=== PATIENT | female | born 1965 | race Caucasian/White ===

== ENCOUNTER 2024-12-21 15:53 | Emergency (ER) | payer BC, SELFPAY ==
--- NOTE | ~2024-12-21 | CT_ITS ---
CTA brain carotid Ordering provider: Danii Lucero MD History: . headache sev days - new onset dizziness tinnitus . Comparison: None. Technique: CT angiogram head and neck was performed following timed intravenous injection of contrast . Thin slice axial images and reformatted coronal images were obtained. Three dimensional reformatted images of the brain were also obtained using a [employer] workstation. Radiation reduction technique ut ilized.The dose-length product was 1743.66 mGy-cm. 100 mL Omnipaque 350 was given IV. FINDINGS: HEAD: --ANTERIOR AND MIDDLE CEREBRAL ARTERIES AND BRANCHES: Normal caliber and contour. --INTERNAL CAROTID ARTERIES: Mild atheromatous disease but no significant stenosis. No occlusion. --BASILAR ARTERY AND BRANCHES: Normal caliber and contour. No atheromatous disease. --POSTERIOR CEREBRAL ARTERIES: Normal caliber and contour --POSTERIOR COMMUNICATING ARTERIES: Not visualized which is probably related to congenital absence or small size. --ANEURYSM: None visualized. --BRAIN: Normal for patient's age. --BONES AND SUPERFICIAL SOFT TISSUES: Normal. --PARANASAL SINUSES AND MASTOIDS: Well especially Left nasal septal deviation. Bilateral mastoid air cells effusion. Right maxillary sinus disease.. NECK: --RIGHT CERVICAL CAROTID SYSTEM: Normal caliber and contour. Percent stenosis per NASCET criteria is 0%. No carotid dissection. Otherwise, no significant atheromatous disease or stenosis of the cervica l carotid system. --LEFT CERVICAL CAROTID SYSTEM: Normal caliber and contour. Percent stenosis per NASCET criteria is 0%. No carotid dissection. Otherwise, no significant atheromatous disease or stenosis of the cervical carotid system. --VERTEBRAL ARTERIES: Dominant left vertebral artery. Otherwise, Normal caliber and contour. --VISUALIZED AORTIC ARCH AND BRANCHING VESSELS: Mild atheromatous disease but no significant stenosis . --SOFT TISSUES: Normal. --CERVICAL SPINE: Age appropriate degenerative changes. IMPRESSION: 1. Normal CTA head and neck. Percent stenosis per NASCET criteria is 0%. Reviewed, dictated and finalized at location A.
--- OUTSIDE RECORDS SUMMARY | 2024-12-21 15:55 | XMS_ITS | Clinical Summary ---
Author Organization [facility] Address [address] [place] [address] Care Team Providers Care Mechanical Engineering Technologist Name Role Phone Dorothy Shieldslindy Ulloa [facility] Primary Care Provider + Allergies No known active allergies Medications No known medications Active Problems No known active problems Family History Medical History Relation Comments Breast Cancer Neg Hx Social History Tobacco Use Types Packs/Day Years Used Date Smoking Tobacco: Never Smokeless Tobacco: Never Alcohol Use Standard Drinks/Week Comments Yes 13.3 (1 standard drink = 0.6 oz pure alcohol) wine with dinners PHQ-2 Answer Date Recorded PHQ-2 Score - If the patient scores above 3, please move on to questions 3-9 0 10/20/2021 Comments No Sex and Gender Information Value Date Recorded Sex Assigned at Not on file Legal Sex Female 6:39 PM CDT Gender Identity Not on file Sexual Orientation Not on file Last Filed Vital Signs Vital Sign Reading Time Taken Comments Blood Pressure 132/76 10/20/2021 1:46 PM CANCER PROGRAM DIRECTOR Pulse 75 10/20/2021 1:46 PM CANCER PROGRAM DIRECTOR Temperature 36.6 C (97.9 F) 10/20/2021 1:46 PM CANCER PROGRAM DIRECTOR Respiratory Rate 20 10/20/2021 1:46 PM CANCER PROGRAM DIRECTOR Oxygen Saturation 98% 10/20/2021 1:46 PM CANCER PROGRAM DIRECTOR Inhaled Oxygen Concentration - - Weight 89.9 kg (198 lb 3.2 oz) 10/20/2021 1:46 P M CANCER PROGRAM DIRECTOR Height 175.3 cm (5' 9 ) 10/20/2021 1:46 PM CANCER PROGRAM DIRECTOR Body Mass Index 29.27 10/20/2021 1:46 PM CANCER PROGRAM DIRECTOR Plan of Treatment Health Maintenance Due Date Last Done Comments Colorectal Cancer Screening Colonoscopy (10 Years) 1963 Hepatitis C 1981 DTaP, Tdap and Td Vaccines ( 1 - Tdap) 1982 Zoster Vaccines (1 of 2) 2013 COVID-19 Vaccine (3 - Pfizer risk series) 01/23/2021 12/26/2020, 11/28/2020 Annual Physical 10/20/2022 10/20/2021 Mammogram Screening 01/28/2025 01/28/2023, 01/06/2023, 12/29/2021 RSV Immunization or 60+ Years (1 - 1-dose 75+ series) 2038 Meningococcal B Vaccine Aged Out No l onger eligible based on patient's age to complete this topic Meningococcal Vaccine Aged Out No thiago valencia eligible based on patient's age to complete this topic Pneumococcal Vaccine: Pediatrics (0 to 5 Years) and At-Risk Patients (6 to 64 Years) Aged Out No longer eligible b ased on patient's age to complete this topic RSV Immunizations Under 20 Months Aged Out No longer eligible b ased on patient's age to complete this topic Procedures Procedure Name Priority Date/Time Associated Diagnosis Comments MG HAOG W MICHAEL LT DIGI Routine 01/28/2023 1:28 PM CDT Abnormal mammogram of left breast from Last 3 Months or Most Recently Relevant to Health Maintenance Results * MG DIAG W MICHAEL LT DIGI (01/28/2023 1:28 PM CDT) Anatomical Region Laterality Modality Breast Left Computed Tomogra phy, Other, Computed Tomography 01/28/2023 4:07 PM CDT Narrative 01/28/2023 4:09 PM CDT IMAGING STUDIES: MG DIAG W MICHAEL LT DIGI DATE: 01/28/2023 1:12 PM HISTORY: Abnormal mammogram . COMPARISON: 01/06/2023 TISSUE TYPE: The breast tissue is heterogeneously dense, which may obscure small masses. DISCUSSION: 1. Diagnostic left breast mammogram with computer-aided detection with 2-D and 3-D imaging and michael synthesis.. 2. At the 9 to 10:00 position of the left breast, 5 cm from the nipple, there is irregular spiculated lesion with microcalcifications. 3. There is abnormal appearance of this lesion on same-day ultrasound. Biopsy is recommended. IMPRESSION: 1. Biopsy recommended of left-sided spiculated mass. 2. Assessment: ACR BI-RADS 5 - HIGHLY SUGGESTIVE OF MALIGNANCY (Greater than 95% Likelihood). APPROPRIATE ACTIONS SHOULD BE TAKEN. 3 .Biopsy should be considered Left Findings discussed with the patient at the time of this exam. MQSA BI-RADS Categories: Category 0 - needs additional imaging evaluation. Category 1 - negative. Category 2 - benign findings. Category 3 - probably benign findings, but short interval follow-up is recommended. Category 4 - suspicious abnormality and biopsy should be considered though the lesion may well be benign. Category 5 - highly suggestive of malignancy and appropriate action should be taken. A) A negative report should not delay a biopsy if a dominant or clinically suspicious mass is present. B) Adenosis and dense breasts may obscure an underlying neoplasm. C) Study interpreted with computer aided detection. Ordered By: CIERA MARTINEZ Interpreted By: Bronwyn Zavaleta, 01/28/2023 4:07 PM Ciera Martinez MD MAMMO Final Re sult from Last 3 Months or Most Recently Relevant to Health Maintenance Insurance [facility] Care Teams Mechanical Engineering Technologist Relationship Specialty Start Date End Date Betty Shields, TELEMETRY REGISTERED NURSE-BC [address] [place] [id number] PCP - General NURSE PRACTITIONER 12/20/23
--- OUTSIDE RECORDS SUMMARY | 2024-12-21 15:56 | XMS_ITS | Encounter Summary ---
Author Organization [facility] Address [address] [place] [address] Care Team Providers Care Traffic Control Flagger Name Role Phone Unavailable Primary Care Provider Unavailabl e Reason for Visit * Diagnostic Imaging (Routine) - Closed Specialty Diagnoses / Procedures Referred By Graciela zaidi Referred To Contact Procedures Breast Imaging Screening Outside Reference Vicente Childers NP Phone: tel: fax: Referral ID Status Reason Start Date Expiration Date Visits Re quested Visits Authorized [id number] Closed 02/22/2023 03/23/2024 1 1 Encounter Details Date Type Department Care Team (Late st Contact Info) Description 10/26/2013 Hospital Encounter [facility] [address] [place] [address] [id number] Social History Tobacco Use Types Packs/Day Years Used Date Smoking Tobacco: Never Passive Smoke Exposure: Never Smokeless Tobacco: Never Social Connection and Isolat ion Panel [NHANES] Answer Date Recorded In a typical week, how many times do you talk on the phone with family, friends, or neighbors? More than three times a week 06/22/2024 How often do you get togethe r with friends or relatives? Twice a week 06/22/2024 How often do you attend chur ch or restorationist services? Never 06/22/2024 Do you belong to any clubs o r organizations such as synagogue groups, unions, fraternal or athletic groups, or school groups? Yes 06/22/2024 How often do you attend meet ings of the clubs or organizations you belong to? More than 4 times per year 06/22/2024 Are you , , di vorced, , never , or living with a partner? 06/22/2024 AUDIT-C Answer Date Recorded Q1: How often do you have a drink containing alc ohol? 2-3 times a week 09/22/2024 Q2: How many drinks containi ng alcohol do you have on a typical day when you are drinking? 1 or 2 09/22/2024 Q3: How often do you have si x or more drinks on one occasion? Never 09/22/2024 Overall Financial Resource Strain (CARDIA) Answe r Date Recorded How hard is it for you to pa y for the very basics like food, housing, medical care, and heating? Not hard at all 06/22/2024 PHQ-2 Answer Date Recorded Patient Health Questionnaire-2 Score 0 06/22/2024 [facility] Occupat ional Health - Occupational Stress Questionnaire Answer Date Recorded Do you feel stress - tense, restless, nervous, or anxious, or unable to sleep at night because your mind is troubled all the time - these days? Only a little 06/22/2024 Exercise Vital Sign Answer Date Recorde d On average, how many days pe r week do you engage in moderate to strenuous exercise (like a brisk walk)? 2 days 06/22/2024 On average, how many minutes do you engage in exercise at this level? 30 min 06/22/2024 Hunger Vital Sign Answer Date Recorded Within the past 12 months, y ou worried that your food would run out before you got the money to buy more. Never true 06/22/20 24 Within the past 12 months, t he food you bought just didn't last and you didn't have money to get more. Never true 06/22/2024 PRAPARE - Transportation Answer Date Re corded In the past 12 months, has l ack of transportation kept you from medical appointments or from getting medications? No 06/13 In the past 12 months, has l ack of transportation kept you from meetings, work, or from getting things needed for daily living? No 06/22/2024 Housing Stability Vital Sign Answer Sarmad e Recorded In the last 12 months, was t here a time when you were not able to pay the mortgage or rent on time? No 08/12/2023 In the last 12 months, how many places have you lived? 1 08/12/2023 In the last 12 months, was t here a time when you did not have a steady place to sleep or slept in a longterm (including now)? No 08/12/2023 Personal Safety Answer Date Recorded Have you ever been in or are you currently in a harmful physical or emotional relationship or is someone making you feel afraid or unsafe? Denies 09/22/2024 Comments No Sex and Gender Information Value Date Recorded Sex Assigned at Not on file Legal Sex Female 9:13 AM MARINE EQUIPMENT RESEARCH ENGINEER Gender Identity Not on file Sexual Orientation Not on file documented as of this encounter Functional Status * Audit-C Score Answer Date of Assessment Author 3 09/22/2024 6:50 AM Ra pablo Coyne RN * Question Answer Date of Assessment Author Q1: How often do you have a drink containing alcohol? 2-3 times a week 09/22/2024 6:50 AM Esperanza Coyne RN Q2: How many drinks containing alcohol do you have on a typical day when you are drinking? 1 or 2 09/22/2024 6:50 AM Esperanza Coyne RN Q3: How often do you have six or more drinks on one occasion? Never 09/22/2024 6:50 AM Esperanza Coyne RN * Over the past 2 weeks, how often have you been bothered by any of the following problems? Question Answer Date of Assessment Author Patient Health Questionnaire-2 Score 0 06/22/2024 10:16 AM CDT Interface, Amb ulatory Doc Flowsheet In * Little interest or pleasure in doing things Answer Date of Assessment Author Not at all 06/22/2024 10:16 AM CDT Interfac e, Ambulatory Doc Flowsheet In * Feeling down, depressed, or hopeless Answer Date of Assessment Author Not at all 06/22/2024 10:16 AM CDT Interfac e, Ambulatory Doc Flowsheet In documented as of this encounter Plan of Treatment Upcoming Encounters Date Type Department Care Team (Late st Contact Info) Description 07/06/2025 Hospital Encounter [facility] Operating [facility] [address] [place] [id number] Ivory Cedeno MD [address] [phone] [place] [address] Scheduled Procedures Name Priority Associated Diagnoses Date/Ti me EXCHANGE IMPLANT BREAST H/O left mastectomy MASTOPEXY H/O left mastectomy FAT GRAFTING H/O left mastectomy CAPSULECTOMY BREAST H/O left mastectomy documented as of this encounter Procedures Procedure Name Priority Date/Time Associated Diagnosis Comments BREAST IMAGING MG SCREENING OUTSIDE REFERENCE Schedule Routine, Read Routine (OP Routine) 10/26/2013 12:00 AM MARINE EQUIPMENT RESEARCH ENGINEER documented in this encounter Results * Breast Imaging Screening Outside Reference (10/26/2013 12:00 AM MARINE EQUIPMENT RESEARCH ENGINEER) Impressions [facility] - 02/22/2023 11:46 AM CDT These images are for Reference purposes only and have not been reviewed by [facility] Radiology. There will be no report generated by a [facility] Radiologist. Narrative [facility] - 02/22/2023 11:46 AM CDT EXAMINATION: Images For Reference Purposes Only us Vicente Childers NP IMG MAMMO PROCEDURES Final Result [facility] documented in this encounter Visit Diagnoses Not on filedocumented in this encounter
--- OUTSIDE RECORDS SUMMARY | 2024-12-21 15:56 | XMS_ITS | Encounter Summary ---
Author Organization [facility] Address [address] [place] [address] Phone Care Team Providers Care Hand Counter Name Role Phone Loren Martinez MD Unavailable [phone] No, Physician Primary Care Provider [phone] Samm Velasco MD Unavailable Encounter Details Date Type Department Care Team (Late st Contact Info) Description 11/29/2024 Results Follow-Up [facility] Oncology [address] [facility] [address] [place] [address] Estela Currie NP [address] [place] [address] Social History Tobacco Use Types Packs/Day Years [...] often do you attend chur ch or gnosticist services? Never 06/22/2024 Do you belong to any clubs o r organizations such as roman catholic groups, unions, fraternal or athletic groups, or [...] Recorded Patient Health Questionnaire-2 Score 0 06/22/2024 [facility] Occupat ional Health - Occupational Stress [...] place to sleep or slept in a residential (including now)? No 08/12/2023 Personal Safety Answer Date Recorded Have you ever been in or are you currently in a harmful physical or emotional relationship or is someone making you feel afraid or unsafe? 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 Gender Identity Not on file Sexual Orientation Not on file documented as of this encounter Plan of Treatment Upcoming Encounters Date Type Department Care Team (Late st Contact Info) Description 07/06/2025 Hospital Encounter [facility] [address] [place] [address] Ivory Cedeno MD [address] [phone] [place] [address] Scheduled Procedures Name Priority Associated Diagnoses Date/Ti me EXCHANGE IMPLANT BREAST H/O left mastectomy MASTOPEXY H/O left mastectomy FAT GRAFTING H/O left mastectomy CAPSULECTOMY BREAST H/O left mastectomy documented as of this encounter Visit Diagnoses Not on filedocumented in this encounter Care Teams Hand Counter Relationship Specialty Start Date End Date No, Physician PCP - General 02/03/23 Loren Martinez MD [address] [place] [facility] [address] [place] [address] Referring Physician Obstetrics and Gynecology 02/01/23 Samm Velasco MD [address] [facility] MEDICAL ONCOLOGY, [facility] [address] [place] [address] Consulting Physician Medical Oncology 03/30/23 documented as of this encounter
--- OUTSIDE RECORDS SUMMARY | 2024-12-21 15:56 | XMS_ITS | Encounter Summary ---
Author Organization [facility] Address [address] [place] [address] Phone Care Team Providers Care Spring Inspector Name Role Phone Loren Martinez MD Unavailable [phone] No, Physician Primary Care Provider [phone] Samm Velasco MD Unavailable Encounter Details Date Type Department Care Team (Latest Contact Info) Description 10/26/2024 Orders Only [facility] Scanning, Provider Social History Tobacco Use Types Packs/Day Years [...] often do you attend chur ch or sikhism services? Never 06/22/2024 Do you belong to [...] Recorded Patient Health Questionnaire-2 Score 0 06/22/2024 [facility] of Occupat ional Health - Occupational Stress [...] place to sleep or slept in a senior care (including now)? No 08/12/2023 Personal Safety Answer Date Recorded Have you ever been in or are you currently in a harmful physical or emotional relationship or is someone making you feel afraid or unsafe? 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 Gender Identity Not on file Sexual Orientation Not on file documented as of this encounter Plan of Treatment Upcoming Encounters Date Type Department Care Team (Late st Contact Info) Description 07/06/2025 Hospital Encounter [facility] Operating [facility] [address] [place] [address] Ivory Cedeno MD [address] [facility] [phone] [place], [place] [id number] Scheduled Procedures Name Priority Associated Diagnoses Date/Ti me EXCHANGE IMPLANT BREAST H/O left mastectomy MASTOPEXY H/O left mastectomy FAT GRAFTING H/O left mastectomy CAPSULECTOMY BREAST H/O left mastectomy documented as of this encounter Procedures Procedure Name Priority Date/Time Associated Diagnosis Comments SCAN - PATHOLOGY 10/26/2024 documented in this encounter Results * SCAN - PATHOLOGY (10/26/2024) us Provider Scanning Edited Result - Final documented in this encounter Visit Diagnoses Not on filedocumented in this encounter Care Teams Spring Inspector Relationship Specialty Start Date End Date No, Physician PCP - General 02/03/23 Loren Martinez MD [address] [place] [address] Referring Physician Obstetrics and Gynecology 02/01/23 Samm Velasco MD [address] [facility], [facility] [address] [place] [address] Consulting Physician Medical Oncology 03/30/23 documented as of this encounter
--- OUTSIDE RECORDS SUMMARY | 2024-12-21 15:56 | XMS_ITS | Clinical Summary ---
Author Organization [facility] Address [address] [place] [id number] Care Team Providers Care Superintendent Drilling Name Role Phone Loren Martinez MD Unavailable [phone] No, Physician Primary Care Provider [phone] Samm Velasco MD Unavailable Allergies No known active allergies Medications multivitamin capsuleIndicati ons:Vitamin Deficiency Prevention Take 1 capsule by mouth every morning Active exemestane (AROMASIN) 25 mg tabletIndicatio ns:Malignant neoplasm of upper-inner quadrant of left breast in female, estrogen receptor positive (HCC) Take 1 tablet (25 mg total) by mouth daily Take after a meal. 30 tablet 11 4 04/13/20 25 Active Additional Information Patient taking differently:25 mg oralDaily before breakfast, Take after a meal.,Indications: breast cancer, Informant: Self, Reported on 10/26/2024 acetaminophen (TYLENOL) 500 mg tablet Take 2 tablets (1,000 mg total) by mouth every 6 (six) hours as needed for pain 60 tablet 5 Active cyclobenzaprine (FLEXERIL) 10 mg tablet Take 1 tablet (10 mg total) by mouth 3 (three) times a day as needed for muscle spasms 45 tablet 5 Active fezolinetant (VEOZAH) tablet tabletIndicatio ns:Vasomotor Symptoms associated with Menopause Take 1 tablet (45 mg total) by mouth daily 30 tablet 1 5 12/26/19 25 Active Active Problems Problem Noted Date Diagnosed Date H/O left mastectomy 06/15/2024 S/P breast reconstruction, left 09/19/2023 Infected breast tissue applications packager 09/07/2023 Hx antineoplastic chemotherapy 07/12/2023 Malignant neoplasm of upper- inner quadrant of left breast in female, estrogen receptor positive 04/06/2023 Breast lesion on mammography 03/03/2023 Encounters Date Type Department Care Team Description 11/29/2024 Results Follow-Up [facility] Oncology [address] [facility] Floor 8 [place] [phone] Estela Currie NP 11/28/2024 Telephone [facility] [place] [address] Randi Sofia, JANIA villanueva 11/24/2024 Telephone [facility] [place] [address] Randi Sofia, JANIA lynn 11/22/2024 Telephone [facility]cology [address] [place] [phone] Randi Sofia, flocculator operator denial 11/17/2024 Telephone [facility] Surgery [facility] Medicine 6th [place] [phone] Elizabeth Hartman [facility] 11/17/2024 Telephone [facility] Surgery [address] [facility] Medicine 6th [place] [address] Ivory Cedeno MD 11/09/2024 9:15 AM MANAGER RELATIONSHIP Office Visit [facility] Surgery [address] [facility] 6th [place] [address] Ivory Cedeno MD Malignant neoplasm of female breast, unspecified estrogen receptor status, unspecified laterality, unspecified site of breast (HCC) (Primary Dx) 10/26/2024 1:52 PM MANAGER RELATIONSHIP - 10/26/2024 11:59 PM MANAGER RELATIONSHIP Hospital Encounter [facility] [address] [place] [phone] Malignant neoplasm of upper-inner quadrant of left breast in female, estrogen receptor positive (HCC); Hypercalcemia Discharge Disposition: Discharge to home or self care 10/26/2024 10:00 AM MANAGER RELATIONSHIP Office Visit [facility] [address] [place] [address] Samm Velasco MD Malignant neoplasm of upper-inner quadrant of left breast in female, estrogen receptor positive (HCC) (Primary Dx); Hypercalcemia 10/26/2024 9:30 AM MANAGER RELATIONSHIP Clinical Support [facility] [address] [place] [address] 10/26/2024 Orders Only [facility] Scanning, Provider 10/26/2024 Orders Only [facility]cology [address] [place] [address] Samm Velasco MD Malignant neoplasm of upper-inner quadrant of left breast in female, estrogen receptor positive (HCC) (Primary Dx) 2024 Orders Only [facility] Oncology [facility] [place] [address] Samm Velasco MD Malignant neoplasm of upper-inner quadrant of left breast in female, estrogen receptor positive (HCC) (Primary Dx) 09/28/2024 10:30 AM MANAGER RELATIONSHIP Office Visit [facility] Surgery [address] [place] [address] [facility] 6th [place] [address] [place] [address] Ana Jaimes NP Malignant neoplasm of upper-inner quadrant of left breast in female, estrogen receptor positive (HCC) (Primary Dx) 09/22/2024 7:32 AM MANAGER RELATIONSHIP Anesthesia Event [facility] Operating [facility] [address] [place] [address] Dominick Richmond MD McGowan, Jessica Lynn, NP 09/22/2024 7:30 AM MANAGER RELATIONSHIP - 09/22/2024 10:45 AM MANAGER RELATIONSHIP Surgery [facility] Operating Room [facility]) [address] [place] [address] Ivory Cedeno MD MASTOPEXY 09/22/2024 5:37 AM MANAGER RELATIONSHIP - 09/22/2024 12:23 PM MANAGER RELATIONSHIP Hospital Encounter [facility] Operating Room [facility] [address] [place] [phone] Ivory Cedeno MD H/O left mastectomy (Primary Dx); Breast lesion on mammography; Hx antineoplastic chemotherapy; Infection of breast tissue applications packager, subsequent encounter Discharge Disposition: Discharge to home or self care from Last 3 Months Surgical History Surgery Date Site/Laterality Comments HYSTERECTOMY 01/11/2001 - 02/10/2001 BREAST BIOPSY 03/17/2023 Left PORTACATH PLACEMENT 04/14/2023 Right MASTECTOMY W/ SENTINEL NODE BIOPSY 08/04/2023 Left with tissue applications packager TISSUE VACUUM CONDITIONER OPERATOR REMOVAL 09/08/2023 Left infection TISSUE VACUUM CONDITIONER OPERATOR PLACEMENT 01/12/2024 - 02/11/2024 BREAST RECONSTRUCTION 09/22/2024 Medical History Medical History Date Comments Arthritis Malignant neoplasm of female breast (HCC) PONV (postoperative nausea and vomiting) Malignant neoplasm of upper- inner quadrant of left breast in female, estrogen receptor positive (HCC) Cancer (HCC) last chemo 01/05 Family History Medical History Relation Name Comments Prostate cancer Father Breast cancer Maternal Grandmother unknow n Anesthesia problems Neg Hx Relation Name Status Comments Father Maternal Grandmother Social History Tobacco Use Types Packs/Day Years Used Date Smoking Tobacco: Never Passive Smoke Exposure: Never Smokeless Tobacco: Never Tobacco Cessation:Counseling Given: Not Answered Social Connection and Isolat ion Panel [NHANES] Answer Date Recorded In a typical week, how many times do you talk on the phone with family, friends, or neighbors? More than three times a week 06/22/2024 How often do you get togethe r with friends or relatives? Twice a week 06/22/2024 How often do you attend chur ch or mosque services? Never 06/22/2024 Do you belong to any clubs o r organizations such as taoism groups, unions, fraternal or athletic groups, or [...] Recorded Patient Health Questionnaire-2 Score 0 06/22/2024 [facility] [place] of Occupat ional Health - Occupational Stress [...] place to sleep or slept in a skilled nursing (including now)? No 08/12/2023 Personal Safety Answer Date Recorded Have you ever been in or are you currently in a harmful physical or emotional relationship or is someone making you feel afraid or unsafe? Denies 09/22/2024 Comments No Sex and Gender Information Value Date Recorded Sex Assigned at Not on file Legal Sex Female 9:13 AM MANAGER RELATIONSHIP Gender Identity Not on file Sexual Orientation Not on file Obstetrics History Para Term AB IAB SAB Ectopic Multiple Livin g Live Births 2 2 2 Date Outcome GA Total Labor Labor/2nd/3rd Weight Sex Type Anes PTL Danna A1 A5 Name Clin Term Term Last Filed Vital Signs Vital Sign Reading Time Taken Comments Blood Pressure 131/83 10/26/2024 10:01 AM MANAGER RELATIONSHIP Pulse 77 10/26/2024 10:01 AM MANAGER RELATIONSHIP Temperature 36.8 C (98.2 F) 10/26/2024 10:01 AM MANAGER RELATIONSHIP Respiratory Rate 18 10/26/2024 10:01 AM MANAGER RELATIONSHIP Oxygen Saturation 98% 10/26/2024 10:01 AM MANAGER RELATIONSHIP Inhaled Oxygen Concentration - - Weight 80.4 kg (177 lb 3.2 oz) 10/26/2024 10:01 AM MANAGER RELATIONSHIP Height 174 cm (5' 8.5 ) 10/26/2024 10:01 AM MANAGER RELATIONSHIP Body Mass Index 26.55 10/26/2024 10:01 AM MANAGER RELATIONSHIP Plan of Treatment Upcoming Encounters Date Type Department Care Team (Late st Contact Info) Description 07/06/2025 Hospital Encounter [facility] Operating [facility] [place] [address] Ivory Cedeno MD [address] [phone] [place] [address] Scheduled Procedures Name Priority Associated Diagnoses Date/Ti me EXCHANGE IMPLANT BREAST H/O left mastectomy MASTOPEXY H/O left mastectomy FAT GRAFTING H/O left mastectomy CAPSULECTOMY BREAST H/O left mastectomy Health Maintenance Due Date Last Done Comments Colon Cancer Screening-Colonoscopy 1963 Hepatitis C Screening 1963 DTaP/Tdap/Td Vaccine (1 - Tdap) 1974 Hepatitis B Screening 1981 Regular Well Visit/Exam 18-64 1981 Pneumococcal vaccine <65 (1 of 2 - PCV) 1982 Zoster Vaccine (1 of 2) 1982 Covid-19 Vaccine (3 - Pfizer risk series) 01/23/2021 12/26/2020, 11/28/2020 Breast Cancer Screening-Mammogram 03/21/2025 03/21/2024, 06/29/2023, 01/06/2023, Additional history exists Influenza Vaccine (Season Ended) 2025 Depression Screening 06/22/2025 06/22/2024, 02/17/2024, 08/12/2023, Additional history exists Medical Devices Implanted Type Area Home Attendant Device Identifier Shelf Expiration Date Model / Serial / Lot [employer] Implant Breast Moderate Plus Profile Smooth Memorygel Boost 320cc Gel [id number] - [id number] - [id number] Implanted:Qty: 1 on 09/22/2024 by Ivory Cedeno MD at [facility] Breast Left: Breast [employer] [id number] 10/12/2028 [id number] / [id number] Bard Peripheral V[employer] Ultraclip Bard 17ga 10cm 2 Trigger Permanent Ultrasound [id number] - [id number] - [id number] Implanted:Qty: 1 on 03/17/2023 at [facility] Clip Left: Breast [employer] [id number] 06/10/2025 [id number] / [id number] / Description:Heart shape [employer] Magtrace Liquid Marker 10 Vial Carton [id number] - [id number] Implanted:Qty: 1 on 08/04/2023 by Robyn García MD PhD at [facility] Left: Breast [employer] 02/10/2024 [id number] / / [id number] Allerg[employer]st[employer] Alloderm Select 86q05ph Allograft Regenerative Freeze Dried [id number] - [id number] - [id number] Implanted:Qty: 1 on 01/31/2024 by Ivory Cedeno MD at [facility] Left: Breast [employer] [id number] 09/12/2024 [id number] / [id number] 12 / [id number] Explanted Type Area Home Attendant Device Identifier Shelf Expiration Date Model / Serial / Lot Ang[employer] Port Implantable Infusion Smart Port Fluoromax Vortex Safesheath Ultra Lite Titanium Polyurethane L66cm Od8fr [id number] Idsec1.5mm 0.7ml 0.02ml Detach Catheter Introducer Power Injectable R Implanted:Qty: 1 on 04/14/2023 by Robyn García MD PhD at [facility] Explanted:Qty: 1 on 09/22/2024 by Ivory Cedeno MD at [facility] Right: Chest [employer] 01/10/2026 [id number] / / [id number] Description:Right Subclavian Port-A-Cath [employer] Geotechnical Department Manager Breast Ultra High Profile Round Smooth Artoura Plus 455cc Silicone [address] - [id number] Implanted:Qty: 1 on 08/04/2023 by Ivory Cedeno MD at [facility] Explanted:Qty: 1 on 09/22/2024 by Ivory Cedeno MD at [facility] Left: Breast [employer] [id number] 05/23/[address] / / [id number] Description:Patient has no I mplants after left one removed just now. I explanted two left implants that were in the system, one of which, was removed today. Don't know when the other was put in, or removed. We will replace a LEFT implant today, Right is Mastopexy only. [employer] Geotechnical Department Manager Breast Ultra High Profile Round Smooth Artoura Plus 350cc Silicone [address] - [id number] - [id number] Implanted:Qty: 1 on 01/31/2024 by Ivory Cedeno MD at [facility] Explanted:Qty: 1 on 09/22/2024 by Ivory Cedeno MD at [facility] Left: Breast [employer] [facility] [id number] 12/30/2027 [id number] / [id number] Description:Patient has no I mplants after left one removed just now. I explanted two left implants that were in the system, one of which, was removed today. Don't know when the other was put in, or removed. We will replace a LEFT implant today, Right is Mastopexy only. Procedures Procedure Name Priority Date/Time Associated Diagnosis Comments PTH Routine 10/26/2024 9:45 AM MANAGER RELATIONSHIP Hypercalcemia TSH Routine 10/26/2024 9:45 AM MANAGER RELATIONSHIP Hypercalcemia EGFR Routine 10/26/2024 9:45 AM MANAGER RELATIONSHIP Malignant neoplasm of upper-inner quadrant of left breast in female, estrogen receptor positive (HCC) DIFFERENTIAL AUTO Routine 10/26/2024 9:4 5 AM MANAGER RELATIONSHIP Malignant neoplasm of upper-inner quadrant of left breast in female, estrogen receptor positive (HCC) CBC WITH AUTO DIFFERENTIAL Routine 10/26/2024 9:45 AM MANAGER RELATIONSHIP Malignant neoplasm of upper-inner quadrant of left breast in female, estrogen receptor positive (HCC) COMPREHENSIVE METABOLIC PANEL Routine 10/26/2024 9:45 AM MANAGER RELATIONSHIP Malignant neoplasm of upper-inner quadrant of left breast in female, estrogen receptor positive (HCC) SCAN - PATHOLOGY 10/26/2024 SIGNATERA + ALTERA (COMBO) Routine 10/26/2024 Malignant neoplasm of upper-inner quadrant of left breast in female, estrogen receptor positive (HCC) SIGNATERA ONLY Routine 10/26/2024 Malignant neoplasm of upper-inner quadrant of left breast in female, estrogen receptor positive (HCC) WI AN PROCEDURE PLACEHOLDER Routine 09/22/2024 7:59 AM MANAGER RELATIONSHIP WI AN PROCEDURE PLACEHOLDER Routine 09/22/2024 7:58 AM MANAGER RELATIONSHIP WI AN ELECTIVE ENDOTRACHEAL AIRWAY Routine 09/22/2024 7:58 AM MANAGER RELATIONSHIP REVISION BREAST 09/22/2024 7:33 AM MANAGER RELATIONSHIP H/O left mastectomy Case Notes 09/04@1604- Can you please reschedule this patient from the depot to 09/22/24?... Patient was previously scheduled on 09/11 and now needs to be placed at first start on 09/22/24- DMF 06/19 - MISSING DPC, EMAIL SENT. NB Special Needs general, supine, no block, 0.25% marcaine +epi, plastic tray, liposuction set, and Rep FAT GRAFTING 09/22/2024 7:33 AM MANAGER RELATIONSHIP H/O left mastectomy Case Notes 1604- Can you please reschedule this patient from the depot to 09/22/24?... Patient was previously scheduled on 09/11 and now needs to be placed at first start on 09/22/24- DMF 06/19 - MISSING DPC, EMAIL SENT. NB Special Needs general, supine, no block, 0.25% marcaine +epi, plastic tray, liposuction set, and Rep REMOVAL VASCULAR ACCESS PORT-A-CATH 09/22/2024 7:33 AM MANAGER RELATIONSHIP H/O left mastectomy Case Notes 09/04@1604- Can you please reschedule this patient from the depot to 09/22/24?... Patient was previously scheduled on 09/11 and now needs to be placed at first start on 09/22/24- DMF 06/19 - MISSING DPC, EMAIL SENT. NB Special Needs general, supine, no block, 0.25% marcaine +epi, plastic tray, liposuction set, and Rep EXCHANGE IMPLANT BREAST 09/22/2024 7:33 AM MANAGER RELATIONSHIP H/O left mastectomy Case Notes 09/04@1604- Can you please reschedule this patient from the depot to 09/22/24?... Patient was previously scheduled on 09/11 and now needs to be placed at first start on 09/22/24- DMF 06/19 - MISSING DPC, EMAIL SENT. NB Special Needs general, supine, no block, 0.25% marcaine +epi, plastic tray, liposuction set, and Rep MASTOPEXY 09/22/2024 7:33 AM MANAGER RELATIONSHIP H/O left mastectomy Case Notes 09/04@1604- Can you please reschedule this patient from the depot to 09/22/24?... Patient was previously scheduled on 09/11 and now needs to be placed at first start on 09/22/24- DMF 06/19 - MISSING DPC, EMAIL SENT. NB Special Needs general, supine, no block, 0.25% marcaine +epi, plastic tray, liposuction set, and Rep SCREENING MAMMOGRAM RIGHT W IAN UNILATERAL ONLY Schedule Routine, Read Routine (OP Routine) 03/21/2024 11:27 AM CDT Malignant neoplasm of upper-inner quadrant of left breast in female, estrogen receptor positive (HCC) from Last 3 Months or Most Recently Relevant to Health Maintenance Results * eGFR (10/26/2024 9:45 AM MANAGER RELATIONSHIP) eGFR 75 >=60 mL/min/1. 73 m2 Comment: Interpretive Data Reference Interval Normal >/= 90 mL/min/1.73m2 Mildly decreased* 60 - 89 mL/min/1.73m2 Mildly to moderately decreased 45 - 59 mL/min/1.73m2 Moderately to severely decreased 30 - 44 mL/min/1.73m2 Severely decreased 15 - 29 mL/min/1.73m2 Kidney Failure < 15 mL/min/1.73m2 *Relative to young adult level Estimated glomerular filtration rate is determined by the 2020 CKD-EPI equation recommended by the National Kidney Foundation (A Unifying Approach to GFR Estimation: Recommendations of the NKF-ASK Task Force on Reassessing the Inclusion of Race in Diagnosing Kidney Disease, JASN 2020). The CKD-EPI equation should not be used for patients with unstable renal function and has not been validated in children and those over 70. Current interpretive data was last reviewed 2021. Testing performed by: [facility] at [facility], [place] [address] Blood 10/26/2024 9:45 AM MANAGER RELATIONSHIP 10/26/2024 9:46 AM MANAGER RELATIONSHIP us Samm Velasco MD LAB BLOOD ORDERAB LES Final Result [facility] [address] Department [place] [address] * Differential, auto (10/26/2024 9:45 AM MANAGER RELATIONSHIP) Neutrophil abs 2.8 1.5 - 6.5 K/cumm Comment:Testing performed by : [facility] [place] [address] Imm gran abs 0.0 0.0 - 0.1 K/cumm CERNER CH Comment:Testing performed by : [facility] [place] [address] Lymphocyte abs 1.7 0.8 - 3.3 K/cumm CERNER CH Comment:Testing performed by : [facility] [place] [address] Monocyte abs 0.4 0.2 - 0.8 K/cumm CERNER CH Comment:Testing performed by : [facility] [place] [address] Eosinophil abs 0.1 0.0 - 0.5 K/cumm CERNER CH Comment:Testing performed by : [facility] [place] [address] Basophil abs 0.0 0.0 - 0.1 K/cumm CERNER CH Comment:Testing performed by : [facility] [place] [address] Neutrophil pct 56.3 % CERNER Comment: Interpretive Data Percent cell count reference ranges are not reported, since discordance with absolute values may lead to misinterpretation of CBC data. Current Interpretive Data was last revised on 2017. Testing performed by: [facility] [place] [address] Imm gran pct 0.2 % CERNER CH Comment: Interpretive Data Percent cell count reference ranges are not reported, since discordance with absolute values may lead to misinterpretation of CBC data. Current Interpretive Data was last revised on 2017. Testing performed by: [facility] [place] [address] Lymphocyte pct 33.7 % [facility] Comment: Interpretive Data Percent cell count reference ranges are not reported, since discordance with absolute values may lead to misinterpretation of CBC data. Current Interpretive Data was last revised on 2017. Testing performed by: [facility] [place] [address] Monocyte pct 7.0 % BETTINA Comment: Interpretive Data Percent cell count reference ranges are not reported, since discordance with absolute values may lead to misinterpretation of CBC data. Current Interpretive Data was last revised on 2017. Testing performed by: [facility] [place] [address] Eosinophil pct 2.0 % BETTINA Comment: Interpretive Data Percent cell count reference ranges are not reported, since discordance with absolute values may lead to misinterpretation of CBC data. Current Interpretive Data was last revised on 2017. Testing performed by: [facility] [place] [address] Basophil pct 0.8 % BETTINA Comment: Interpretive Data Percent cell count reference ranges are not reported, since discordance with absolute values may lead to misinterpretation of CBC data. Current Interpretive Data was last revised on 2017. Testing performed by: [facility] [place] [address] Blood 10/26/2024 9:45 AM MANAGER RELATIONSHIP 10/26/2024 9:46 AM MANAGER RELATIONSHIP us Samm Velasco MD LAB BLOOD ORDERAB LES Final Result [facility] [address] [place] [address] * CBC with auto differential (10/26/2024 9:45 AM MANAGER RELATIONSHIP) WBC 5.0 3.8 - 9.9 K/cumm Comment:Testing performed by : [facility] [place] [address] Hgb 13.7 11.9 - 15.5 g/dL CERNER CH Comment:Testing performed by : [facility] [place] [address] Hct 42.3 35.6 - 45.5 % CERNER CH Comment:Testing performed by : [facility] [place] [address] Plt 226 150 - 400 K/cumm CERNER CH Comment:Testing performed by : [facility] [place] [address] MPV 10.4 9.1 - 12.3 fL CERNER CH Comment:Testing performed by : [facility] [place] [address] RBC 4.60 3.90 - 5.20 M/cumm CERNER CH Comment:Testing performed by : [facility] [place] [address] MCV 92.0 81.3 - 96.4 fL CERNER CH Comment:Testing performed by : [facility] [place] [address] MCH 29.8 27.1 - 33.3 pg CERNER CH Comment:Testing performed by : [facility] [place] [address] MCHC 32.4 32.3 - 35.7 g/dL CERNER CH Comment:Testing performed by : [facility] [place] [address] RDW CV 12.7 11.1 - 14.9 % CERNER CH Comment:Testing performed by : [facility] [place] [address] RDW SD 42.8 35.7 - 48.1 fL CERNER CH Comment:Testing performed by : [facility] [place] [address] NRBC abs 0.00 0.00 - 0.01 K/cumm CERNER CH Comment:Testing performed by : [facility] [place] [address] Blood 10/26/2024 9:45 AM MANAGER RELATIONSHIP 10/26/2024 9:46 AM MANAGER RELATIONSHIP us Samm Velasco MD LAB BLOOD ORDERAB LES Final Result [facility] [address] Department of Laboratories [place] [phone] * TSH (10/26/2024 9:45 AM MANAGER RELATIONSHIP) [facility] Thyroid Stimulating Hormone 2.41 0.30 - 4.20 mcIUnit/mL Blood 10/26/2024 9:45 AM MANAGER RELATIONSHIP 10/26/2024 11:53 AM MANAGER RELATIONSHIP Samm Velasco MD LAB BLOOD ORDERAB LES Final Result Performing Organization Address City/[facility] Co de Phone Number [facility] [address] [place] [address] * PTH (10/26/2024 9:45 AM MANAGER RELATIONSHIP) [facility] PTH 29 15 - 65 pg/mL Blood 10/26/2024 9:45 AM MANAGER RELATIONSHIP 10/26/2024 11:53 AM MANAGER RELATIONSHIP Samm Velasco MD LAB BLOOD ORDERAB LES Final Result Performing Organization Address [facility] de Phone Number [facility] [address] [facility] [place] [address] * (ABNORMAL) Comprehensive metabolic panel (10/26/2024 9:45 AM MANAGER RELATIONSHIP) [facility] Sodium 137 135 - 145 mmol/L Comment:Testing performed by : [facility] [place] [address] Potassium, pl 4.4 3.3 - 4.9 mmol/L CERNER CH Comment:Testing performed by : [facility] [place] [address] Chloride 101 97 - 110 mmol/L CERNER CH Comment:Testing performed by : [facility] [place] [address] CO2 29 22 - 32 mmol/L CERNER CH Comment:Testing performed by : [facility] [place] [address] Anion gap 7 2 - 15 mmol/L CERNER CH Comment:Testing performed by : [facility] [place] [address] BUN 13 6 - 25 mg/dL CERNER CH Comment:Testing performed by : [facility] [place] [address] Creatinine 0.88 0.60 - 1.10 mg/dL CERNER CH Comment:Testing performed by : [facility] [place] [address] Glucose 141 70 - 199 mg/dL CERNER CH Comment: Interpretive Data Fasting glucose >/= 126 mg/dl is diagnostic for diabetes. Fasting is defined as no caloric intake for at least 8 hours. Fasting glucose between 100 mg/dl to 125 mg/dl is diagnostic of prediabetes. In a patient with classic symptoms of hyperglycemia or hyperglycemic crisis, a random glucose >/= 200 mg/dl is diagnostic for diabetes. In the absence of unequivocal hyperglycemia, results should be confirmed by repeat testing. The classification and Diagnosis of Diabetes Diabetes Care 2021; 46: S19-S40. Current interpretive data was last revised 2022. Testing performed by: [facility] [place] [address] Calcium 10.8(H) 8.5 - 10.3 mg/dL CERNER CH Comment:Testing performed by : [facility] [place] [address] Bilirubin, total 1.0 0.1 - 1.2 mg/dL CERNER CH Comment:Testing performed by : [facility] [place] [address] Protein, pl 7.4 6.5 - 8.5 g/dL CERNER CH Comment:Testing performed by : [facility] [place] [address] Albumin 4.6 3.5 - 5.0 g/dL CERNER CH Comment:Testing performed by : [facility] [place] [address] Alk phos 90 40 - 130 Units/L CERNER CH Comment:Testing performed by : [facility] [place] [address] ALT 20 7 - 45 Units/L CERNER CH Comment:Testing performed by : [facility] [place] [address] AST 25 10 - 45 Units/L CERNER CH Comment:Testing performed by : [facility] [place] [address] Blood 10/26/2024 9:45 AM MANAGER RELATIONSHIP 10/26/2024 9:46 AM MANAGER RELATIONSHIP us Samm Velasco MD LAB BLOOD ORDERAB LES Final Result Performing Organization Address City/[facility]/ZIP Co de Phone Number BETTINA [phone] [facility] [place] [address] * SIGNATERA + ALTERA (COMBO) (10/26/2024) REPORT SUMMARY See Notes 11/19/2024 12:56 PM CDT [facility] Comment:Laboratory processin g could not proceed due to poor DNA quality and/or quantity. [facility] customer care can be reached by telephone at [phone], by FAX at [phone], and by email at [email or web address]. For more information regarding tissue collection, please visit this page: [email or web address]. FOOTNOTES See Notes 11/19/2024 12:56 PM CDT [facility] Comment:Test Interpreted by [facility]: [address] [place] [address] [address] [place] [address]: CLIA ID #[id number]: [employer]ing [employer] Operator: Kelvin Paniagua, Ph.D., [facility]. Test Performed by [facility]: [address] [place] [address], [address]: CLIA ID # [id number]: CLIA Forming Press Operator: Tianna Hannah Blood specimen (specimen) Venous blood specimen / Unknown 10/26/2024 11/19/2024 12:56 PM CDT us Samm Velasco MD LAB GENETIC TESTI NG Final Result [facility] [address] [place] [address], [facility] * SIGNATERA ONLY (10/26/2024) SIGNATERA TEST RESULT NEGATIVE 04/2025 10:16 PM MANAGER RELATIONSHIP [facility] SIGNATERA MTM READOUT 0 MTM/ml 04/2025 10:16 PM MANAGER RELATIONSHIP [facility] Comment: Limitations Signatera is a personalized, tumor-informed test for the longitudinal detection of circulating tumor DNA (ctDNA). Interval testing is recommended for all patients. Studies have demonstrated that when ctDNA is detected (Signatera Positive) following surgery or definitive treatment, the risk for disease relapse is high without further treatment. Conversely, when ctDNA is not detected, the patient may be considered at lower risk for relapse. For those with multiple timepoints, upward trending ctDNA levels are suggestive of increasing tumor burden (1,2). For a single time point in isolation, the absolute MTM/mL value has no known clinical significance and should not be compared across patients. Test results should be interpreted in context of other clinicopathological features. ctDNA detection sensitivity may be limited due to blood collection within two weeks of surgery and while the patient is on therapy. Signatera is a quantitative test and reports in units of mean tumor molecules per ml (MTM/mL), which is comprised of three measured components (plasma volume, cell free DNA (cfDNA) concentration, and Variant Allele Frequency (VAF)). The MTM/mL number will be qualified if any measured component falls outside the analytical measurement range for that component. The analytical sensitivity is 95% at the limit of detection (0.3 MTM/mL). Results obtained are specific to the assessed time point. A negative test result does not definitively indicate the absence of cancer. This test is not designed to detect or report germline variation, nor does it infer hereditary cancer risk for the patient. Each Signatera assay is designed to a single tumor for a given patient. At this time, multiple personalized Signatera assays cannot be developed for the same patient. This test is designed to detect ctDNA from the assayed tumor only; new primary tumors will not be detected. There is a low risk that a new primary may share a variant that could interfere with the Signatera test. Testing cannot be performed in patients who are , have a history of bone marrow transplant, or history of blood transfusion within three months. This test is expected to have limited sensitivity in cancer types such as GIST, renal cell carcinomas, primary brain tumors, and lymphoma due to limited ctDNA shed. 1 Esteban SV, Marcelo LACYC, Katie MARTINO, et al. Personalized circulating tumor DNA analysis as a predictive biomarker in solid tumor patients treated with pembrolizumab. Nature Cancer. 2020;1(9):873-881. 2 Ai SHARP, Alfredo Wallace et al., Circulating Tumor DNA in Stage III Colorectal Cancer, beyond Minimal Residual Disease Detection, toward Assessment of Adjuvant Therapy Efficacy and Clinical Behavior of Recurrences. Clin Cancer Res. 2020; 28(3):507-517. Methodology FFPE samples are assessed by a pathologist to identify tumor margins and percent tumor content. Tumor DNA is extracted using Qiagen AllPrep. Whole genomic DNA is isolated from peripheral blood using QIAamp DNA Blood Mini Kit to provide a baseline DNA sequence. Circulating tumor DNA (ctDNA) is extracted from plasma derived from whole blood samples collected in cell-free DNA blood tubes (Freedom2) using the QIAiProf Learning SolutionsmpZidoff eCommerceny automated or manual extraction method (Qiagen). Using a proprietary algorithm, putative, clonal variants present in the tumor but absent in the germline DNA are identified to design the customized multiplex PCR assay. Whole-exome sequencing is performed on tumor and peripheral blood DNA using Upstream Commercep library kit (eMar) with a custom Notis.tv exome capture (OpenRoute). Using a proprietary algorithm, putative clonal variants present in the tumor but absent in the germline DNA are identified to design the customized multiplex PCR assay. Circulating tumor DNA is extracted from plasma collected in Streck tubes using Accela proprietary methods. The customized PCR assays are run to detect presence or absence of these variants within circulating plasma. A patient's plasma sample is considered ctDNA positive when at least two individual-specific tumor variants are detected. When fewer than two individual-specific tumor variants are observed, a negative result is issued. Tumor variation outside of the individual, tumor specific variants is not assessed. Pathology services and whole exome sequencing are performed at [facility] (CLIA ID# [id number]) [address] [place] [address]. Disclaimer The extraction, library preparation, and sequencing for this test were performed by [facility] [id number] [place] [address], [facility] [address], [place] [address] (CLIA ID [id number]). The data analysis and reporting for this test were performed by [facility] [address] [facility]. [facility] [address], [place] [address] (CLIA ID [id number]). This test was developed and its performance characteristics determined by [facility]. The test has not been cleared or approved by the U.S. Food and Drug Administration (FDA). CAP accredited, ISO 41202 certified, and CLIA certified. Pathology services and whole exome sequencing for this test were performed by [facility] [address] [place] [address] (CLIA ID [id number]). 2020 [employer]. All Rights Reserved. Blood specimen (specimen) Venous blood specimen / Unknown 10/26/2024 11/18/2024 10:16 PM MANAGER RELATIONSHIP Samm Velasco MD LAB GENETIC TESTI NG Final Result [facility] [address] [place] [address], [facility] * SCAN - PATHOLOGY (10/26/2024) Provider Scanning Edited Result - Final * WI AN PROCEDURE PLACEHOLDER (09/22/2024 7:59 AM MANAGER RELATIONSHIP) Raciel Roberts Jr., CRNA - 09/22/2024 7:59 AM MANAGER RELATIONSHIP Raciel Ornelas Jr., CRNA 09/22/2024 7:59 AM Peripheral IV Catheter Patient location: OR Staff: Placed by: COMPUTER FIELD TECHNICIAN: Raciel Ornelas Jr., CRNA Preprocedure prep: Prep solution: alcohol PPE: gloves PIV line: Laterality: left Site: forearm Catheter size: 18 g Technique: anatomical landmarks Procedure details: good blood return Number of attempts: 1 Assessment: Events: patient tolerated procedure well with no complications Dominick Richmond MD ANESTHESIA ORDERABLES Final Res ult * WI AN ELECTIVE ENDOTRACHEAL AIRWAY, WI AN PROCEDURE PLACEHOLDER (09/22/2024 7:58 AM MANAGER RELATIONSHIP) Raciel Roberts Jr., CRNA - 09/22/2024 7:58 AM MANAGER RELATIONSHIP Raciel Ornelas Jr., CRNA 09/22/2024 7:59 AM Airway Patient location: OR Urgency: elective Difficult airway: no Staff: Supervising provider: Dominick Richmond MD Placed by: COMPUTER FIELD TECHNICIAN: Raciel Ornelas Jr., CRNA Emergent airway documentation: Risks and benefits discussed: yes Consent obtained: yes Consent given by: patient Airway prep: Preoxygenated: yes Patient position: sniffing Mask difficulty assessment: 1 - vent by mask Spontaneous ventilation during airway: present Sedation level during airway: GA Final airway details: Final airway type: endotracheal airway Tube type: ETT ETT size: 7.0 mm Cuffed: yes Technique used for successful ETT placement: direct laryngoscopy Devices/Methods used in placement: stylet Insertion site: oral Blade type: Beaver Blade size: 2 Cormack-Lehane (direct): grade I - full view of glottis Initial cuff pressure: 25 cm H2O Cuff volume: 6 mL Cuff inflated with: air ETT to lips: 22 cm Placement verified by: auscultation and CO2 detection Airway secured with: silk tape Number of attempts: 1 us Dominick Richmond MD ANESTHESIA ORDERABLES Final Res ult * Screening Mammogram Right W Ian Unilateral Only (03/21/2024 11:27 AM CDT) Anatomical Region Laterality Modality Breast Right Mammography 03/21/2024 11:3 7 AM CDT Impressions 03/21/2024 11:37 AM CDT No evidence of malignancy in right breast. FINAL ASSESSMENT: BI-RADS Category 1: Negative. RECOMMENDATION: Recommend return for annual screening mammogram in 12 months. Electronically signed by: AUTUMN CAT MD Narrative 03/21/2024 11:37 AM CDT EXAMINATION: RIGHT SCREENING MAMMOGRAM COMPARISON: All prior mammograms dating back to 2021. TECHNIQUE: Full-field 2D and digital breast tomosynthesis (DBT) images were obtained. CAD was utilized. BREAST PARENCHYMAL COMPOSITION: The breasts are extremely dense, which lowers the sensitivity of mammography. FINDINGS: There is no suspicious mass, calcification, or distortion in right breast . Patient is status post left mastectomy. us Robyn García MD PhD IMG MAMMO PROCEDURES Final Result from Last 3 Months or Most Recently Relevant to Health Maintenance [place] Care Teams Superintendent Drilling Relationship Specialty Start Date End Date No, Physician PCP - General 02/03/23 Loren Martinez MD [address] [place] [address] [facility] [address] [place] [address] Referring Physician Obstetrics and Gynecology 02/01/[address] [facility], [facility] [address] [place] [address] Consulting Physician Medical Oncology 03/30/23
--- OUTSIDE RECORDS SUMMARY | 2024-12-21 15:56 | XMS_ITS | Referral Summary ---
Author Organization [facility] Address [address] [place] [address] Care Team Providers Care Python Developer Name Role Phone Loren Martinez MD Unavailable [phone] No, Physician Primary Care Provider [phone] Samm Velasco MD Unavailable Encounters Date Type Department Care Team Description 11/29/2024 Results Follow-Up [facility] Oncology [address] [facility] Floor 8 [place] [phone] Estela Currie NP 11/28/2024 Telephone [facility] Oncology [address] [place] [address] Randi Sofia, RN rom 11/24/2024 Telephone [facility] Oncology [address] [place] [address] Randi Sofia, RN ted 11/22/2024 Telephone [facility] Oncology [address] [place] [address] Randi Sofia, corporate strategy analyst denial 11/17/2024 Telephone [facility] Surgery [address] [place] [address] Advanced Medicine 6th [place] [address] Elizabeth Hartman CMA 11/17/2024 Telephone [facility] Surgery [address] [place] [address] Advanced Medicine 6th [place] [phone] Ivory Cedeno MD 11/09/2024 9:15 AM BILLET EXAMINER Office Visit [facility] Surgery [address] [facility] 6th [place] [address] Ivory Cedeno MD Malignant neoplasm of female breast, unspecified estrogen receptor status, unspecified laterality, unspecified site of breast (HCC) (Primary Dx) 10/26/2024 Orders Only [facility] Scanning, Provider 10/26/2024 Orders Only [facility] Oncology [address] [place], [place] [address] [place] [address] Samm Velasco MD Malignant neoplasm of upper-inner quadrant of left breast in female, estrogen receptor positive (HCC) (Primary Dx) 10/26/2024 9:30 AM BILLET EXAMINER Clinical Support [place] [address] [place] [address] 10/26/2024 10:00 AM BILLET EXAMINER Office Visit [facility] Oncology [address] [place], [place] [address] [place] [address] Samm Velasco MD Malignant neoplasm of upper-inner quadrant of left breast in female, estrogen receptor positive (HCC) (Primary Dx); Hypercalcemia 10/26/2024 1:52 PM BILLET EXAMINER - 10/26/2024 11:59 PM BILLET EXAMINER Hospital Encounter [facility] [address] [place] [phone] Malignant neoplasm of upper-inner quadrant of left breast in female, estrogen receptor positive (HCC); Hypercalcemia Discharge Disposition: Discharge to home or self care 2024 Orders Only [facility] Oncology [facility] [place] [address] Samm Velasco MD Malignant neoplasm of upper-inner quadrant of left breast in female, estrogen receptor positive (HCC) (Primary Dx) 09/28/2024 10:30 AM BILLET EXAMINER Office Visit [facility] Surgery [facility] 6th [place] [address] Ana Jaimes NP Malignant neoplasm of upper-inner quadrant of left breast in female, estrogen receptor positive (HCC) (Primary Dx) 09/22/2024 7:30 AM BILLET EXAMINER - 09/22/2024 10:45 AM BILLET EXAMINER Surgery [facility] Operating [facility] [address] [place] [address] Ivory Cedeno MD MASTOPEXY 09/22/2024 7:32 AM BILLET EXAMINER Anesthesia Event [facility] Operating [facility] ([facility]) [address] [place] [address] Dominick Richmond MD McGowan, Sarah Brown, ORACLE SOA CONSULTANT 09/22/2024 5:37 AM BILLET EXAMINER - 09/22/2024 12:23 PM BILLET EXAMINER Hospital Encounter [facility] ([facility]) [address] [place] [address] Ivory Cedeno MD H/O left mastectomy (Primary Dx); Breast lesion on mammography; Hx antineoplastic chemotherapy; Infection of breast tissue pest control operator, subsequent encounter Discharge Disposition: Discharge to home or self care from Last 3 Months Allergies No known active allergies Medications multivitamin [...] breast reconstruction, left 09/19/2023 Infected breast tissue pest control operator 09/07/2023 Hx antineoplastic chemotherapy 07/12/2023 Malignant neoplasm of upper- inner quadrant of left breast in female, estrogen receptor positive 04/06/2023 Breast lesion on mammography 03/03/2023 Social History Tobacco Use Types Packs/Day Years [...] 06/22/2024 How often do you attend chur or catholic services? Never 06/22/2024 Do you belong to any clubs o r organizations such as scientology groups, unions, fraternal or athletic groups, or [...] Recorded Patient Health Questionnaire-2 Score 0 06/22/2024 [facility] - Occupational [...] place to sleep or slept in a alf (including now)? No 08/12/2023 Personal Safety Answer Date Recorded Have you ever been in or are you currently in a harmful physical or emotional relationship or is someone making you feel afraid or unsafe? Denies 09/22/2024 Comments No Sex and Gender Information Value Date Recorded Sex Assigned at Not on file Legal Sex Female 9:13 AM BILLET EXAMINER Gender Identity Not on file Sexual Orientation Not on file Last Filed Vital Signs Vital Sign Reading Time Taken Comments Blood Pressure 131/83 10/26/2024 10:01 AM BILLET EXAMINER Pulse 77 10/26/2024 10:01 AM BILLET EXAMINER Temperature 36.8 C (98.2 F) 10/26/2024 10:01 AM BILLET EXAMINER Respiratory Rate 18 10/26/2024 10:01 AM BILLET EXAMINER Oxygen Saturation 98% 10/26/2024 10:01 AM BILLET EXAMINER Inhaled Oxygen Concentration - - Weight 80.4 kg (177 lb 3.2 oz) 10/26/2024 10:01 AM BILLET EXAMINER Height 174 cm (5' 8.5 ) 10/26/2024 10:01 AM BILLET EXAMINER Body Mass Index 26.55 10/26/2024 10:01 AM BILLET EXAMINER Plan of Treatment Upcoming Encounters Date Type Department Care Team (Late st Contact Info) Description 07/06/2025 Hospital Encounter [facility] Operating [facility]) [address] [place] [address] Ivory Cedeno MD [address] [facility] [phone] [place] [address] Scheduled Procedures Name Priority Associated Diagnoses Date/Ti me EXCHANGE IMPLANT BREAST H/O left mastectomy MASTOPEXY H/O left mastectomy FAT GRAFTING H/O left mastectomy CAPSULECTOMY BREAST H/O left mastectomy Medical Devices Implanted Type Area Steeler Device Identifier Shelf Expiration Date Model / Serial / Lot [employer] Implant Breast Moderate Plus Profile Smooth Memorygel Boost 320cc Gel [id number] - [id number] - [id number] Implanted:Qty: 1 on 09/22/2024 by Ivory Cedeno MD at [facility] Breast Left: Breast [employer] [id number] 10/12/2028 [id number] / [id number] / [id number] [employer] Ultraclip Bard 17ga 10cm 2 Trigger Permanent Ultrasound [id number] - [id number] - [id number] Implanted:Qty: 1 on 03/17/2023 at [facility] Clip Left: Breast [employer] [id number] 06/10/2025 [id number] / [id number] / Description:Heart shape [employer] Magtrace Liquid Marker 10 Vial Carton [id number] - [id number] Implanted:Qty: 1 on 08/04/2023 by Robyn García MD PhD at [facility] Left: Breast [employer] 02/10/2024 [id number] / / [id number] [employer] Alloderm Select 72m28xa Allograft Regenerative Freeze Dried [id number] - [id number] - [id number] Implanted:Qty: 1 on 01/31/2024 by Ivory Cedeno MD at [facility] Left: Breast [employer] [id number] 09/12/2024 [id number] / [id number] / [id number] Explanted Type Area Steeler Device Identifier Shelf Expiration Date Model / Serial / Lot Ang[employer] Port Implantable Infusion Smart Port Fluoromax Vortex Safesheath Ultra Lite Titanium Polyurethane L66cm Od8fr [id number] Idsec1.5mm 0.7ml 0.02ml Detach Catheter Introducer Power Injectable R Implanted:Qty: 1 on 04/14/2023 by Robyn García MD PhD at [facility] Explanted:Qty: 1 on 09/22/2024 by Ivory Cedeno MD at [facility] Right: Chest Ang[employer] 01/10/2026 [id number] / / [id number] Description:Right Subclavian Port-A-Cath [employer] Dental Amalgam Processor Breast Ultra High Profile Round Smooth Artoura Plus 455cc Silicone [address] - [id number] Implanted:Qty: 1 on 08/04/2023 by Ivory Cedeno MD at [facility] Explanted:Qty: 1 on 09/22/2024 by Ivory Cedeno MD at [facility] Left: Breast [employer] [id number] 05/23/[address] / / [id number] Description:Patient has no I mplants after left one removed just now. I explanted two left implants that were in the system, one of which, was removed today. Don't know when the other was put in, or removed. We will replace a LEFT implant today, Right is Mastopexy only. [employer] Dental Amalgam Processor Breast Ultra High Profile Round Smooth Artoura Plus 350cc Silicone [id number] - [id number] - [id number] Implanted:Qty: 1 on 01/31/2024 by Ivory Cedeno MD at [facility] Explanted:Qty: 1 on 09/22/2024 by Ivory Cedeno MD at [facility] Medicine Left: Breast [employer] [id number] 12/30/[address] / [id number] Description:Patient has no I mplants after left one removed just now. I explanted two left implants that were in the system, one of which, was removed today. Don't know when the other was put in, or removed. We will replace a LEFT implant today, Right is Mastopexy only. Procedures Procedure Name Priority Date/Time Associated Diagnosis Comments PTH Routine 10/26/2024 9:45 AM BILLET EXAMINER Hypercalcemia TSH Routine 10/26/2024 9:45 AM BILLET EXAMINER Hypercalcemia EGFR Routine 10/26/2024 9:45 AM BILLET EXAMINER Malignant neoplasm of upper-inner quadrant of left breast in female, estrogen receptor positive (HCC) DIFFERENTIAL AUTO Routine 10/26/2024 9:4 5 AM BILLET EXAMINER Malignant neoplasm of upper-inner quadrant of left breast in female, estrogen receptor positive (HCC) CBC WITH AUTO DIFFERENTIAL Routine 10/26/2024 9:45 AM BILLET EXAMINER Malignant neoplasm of upper-inner quadrant of left breast in female, estrogen receptor positive (HCC) COMPREHENSIVE METABOLIC PANEL Routine 10/26/2024 9:45 AM BILLET EXAMINER Malignant neoplasm of upper-inner quadrant of left breast in female, estrogen receptor positive (HCC) SCAN - PATHOLOGY 10/26/2024 SIGNATERA + ALTERA (COMBO) Routine 10/26/2024 Malignant neoplasm of upper-inner quadrant of left breast in female, estrogen receptor positive (HCC) SIGNATERA ONLY Routine 10/26/2024 Malignant neoplasm of upper-inner quadrant of left breast in female, estrogen receptor positive (HCC) SD AN PROCEDURE PLACEHOLDER Routine 09/22/2024 7:59 AM BILLET EXAMINER SD AN PROCEDURE PLACEHOLDER Routine 09/22/2024 7:58 AM BILLET EXAMINER SD AN ELECTIVE ENDOTRACHEAL AIRWAY Routine 09/22/2024 7:58 AM BILLET EXAMINER REVISION BREAST 09/22/2024 7:33 AM BILLET EXAMINER H/O left mastectomy Case Notes 09/04@1604- Can you please reschedule this patient from the depot to 09/22/24?... Patient was previously scheduled on 09/11 and now needs to be placed at first start on 09/22/24- [facility] 06/19 - MISSING DPC, EMAIL SENT. NB Special Needs general, supine, no block, 0.25% marcaine +epi, plastic tray, liposuction set, and Rep FAT GRAFTING 09/22/2024 7:33 AM BILLET EXAMINER H/O left mastectomy Case Notes 09/04@1604- Can you please reschedule this patient from the depot to 09/22/24?... Patient was previously scheduled on 09/11 and now needs to be placed at first start on 09/22/24- [facility] 06/19 - MISSING DPC, EMAIL SENT. NB Special Needs general, supine, no block, 0.25% marcaine +epi, plastic tray, liposuction set, and Rep REMOVAL VASCULAR ACCESS PORT-A-CATH 09/22/2024 7:33 AM BILLET EXAMINER H/O left mastectomy Case Notes 09/04@1604- Can you please reschedule this patient from the depot to 09/22/24?... Patient was previously scheduled on 09/11 and now needs to be placed at first start on 09/22/24- [facility] 06/19 - MISSING DPC, EMAIL SENT. NB Special Needs general, supine, no block, 0.25% marcaine +epi, plastic tray, liposuction set, and Rep EXCHANGE IMPLANT BREAST 09/22/2024 7:33 AM BILLET EXAMINER H/O left mastectomy Case Notes 09/04@1604- Can you please reschedule this patient from the depot to 09/22/24?... Patient was previously scheduled on 09/11 and now needs to be placed at first start on 09/22/24- [facility] 06/19 - MISSING DPC, EMAIL SENT. NB Special Needs general, supine, no block, 0.25% marcaine +epi, plastic tray, liposuction set, and Rep MASTOPEXY 09/22/2024 7:33 AM BILLET EXAMINER H/O left mastectomy Case Notes 09/04@1604- Can [...] Maintenance Results * eGFR (10/26/2024 9:45 AM BILLET EXAMINER) eGFR 75 >=60 mL/min/1. 73 m2 Comment: [...] Inclusion of Race in Diagnosing Kidney Disease, STORM 2020). The CKD-EPI equation should not be used for patients with unstable renal function and has not been validated in children and those over 70. Current interpretive data was last reviewed 2021. Testing performed by: [facility] [place] [address] Blood 10/26/2024 9:45 AM BILLET EXAMINER 10/26/2024 9:46 AM BILLET EXAMINER us Samm Velasco MD LAB BLOOD ORDERAB LES Final Result [facility] [address] [address] Department [place] [address] * Differential, auto (10/26/2024 9:45 AM BILLET EXAMINER) Neutrophil abs 2.8 1.5 - 6.5 K/cumm Comment:Testing performed by : [facility] [place] [address] Imm gran abs 0.0 0.0 - 0.1 K/cumm CERNER CH Comment:Testing performed by : [facility] [place] [address] Lymphocyte abs 1.7 0.8 - 3.3 K/cumm CERNER CH Comment:Testing performed by : [facility] [place] [address] Monocyte abs 0.4 0.2 - 0.8 K/cumm CERNER CH Comment:Testing performed by : [facility] [place] [address] Eosinophil abs 0.1 0.0 - 0.5 K/cumm CERNER CH Comment:Testing performed by : [facility] [place] [address] Basophil abs 0.0 0.0 - 0.1 K/cumm CERNER CH Comment:Testing performed by : [facility] [place] [address] Neutrophil pct 56.3 % CERNER CH Comment: Interpretive Data Percent cell count reference ranges are not reported, since discordance with absolute values may lead to misinterpretation of CBC data. Current Interpretive Data was last revised on 2017. Testing performed by: [facility] [place] [address] Imm gran pct 0.2 % CERNER Comment: Interpretive Data Percent cell count reference ranges are not reported, since discordance with absolute values may lead to misinterpretation of CBC data. Current Interpretive Data was last revised on 2017. Testing performed by: [facility] [place] [address] Lymphocyte pct 33.7 % CERNER Comment: Interpretive Data Percent cell count reference ranges are not reported, since discordance with absolute values may lead to misinterpretation of CBC data. Current Interpretive Data was last revised on 2017. Testing performed by: [facility] [place] [address] Monocyte pct 7.0 % CERNER Comment: Interpretive Data Percent cell count reference ranges are not reported, since discordance with absolute values may lead to misinterpretation of CBC data. Current Interpretive Data was last revised on 2017. Testing performed by: [facility] [place] [address] Eosinophil pct 2.0 % CERNER Comment: Interpretive Data Percent cell count reference ranges are not reported, since discordance with absolute values may lead to misinterpretation of CBC data. Current Interpretive Data was last revised on 2017. Testing performed by: [facility] [place] [address] Basophil pct 0.8 % CERNER Comment: Interpretive Data Percent cell count reference ranges are not reported, since discordance with absolute values may lead to misinterpretation of CBC data. Current Interpretive Data was last revised on 2017. Testing performed by: [facility] [place] [address] Blood 10/26/2024 9:45 AM BILLET EXAMINER 10/26/2024 9:46 AM BILLET EXAMINER us Samm Velasco MD LAB BLOOD ORDERAB LES Final Result [facility] [address] [address] Department of Laboratories [place], [place] [id number] * CBC with auto differential (10/26/2024 9:45 AM BILLET EXAMINER) WBC 5.0 3.8 - 9.9 K/cumm Comment:Testing performed by : [facility] [place] [address] Hgb 13.7 11.9 - 15.5 g/dL CERNER CH Comment:Testing performed by : [facility] [place] [address] Hct 42.3 35.6 - 45.5 % CERNER CH Comment:Testing performed by : [facility] [place] [address] Plt 226 150 - 400 K/cumm CERNER CH Comment:Testing performed by : [facility] [place] [address] MPV 10.4 9.1 - 12.3 fL CERNER CH Comment:Testing performed by : [facility] [place] [address] RBC 4.60 3.90 - 5.20 M/cumm CERNER CH Comment:Testing performed by : [facility] [place] [address] MCV 92.0 81.3 - 96.4 fL CERNER CH Comment:Testing performed by : [facility] [place] [address] MCH 29.8 27.1 - 33.3 pg CERNER CH Comment:Testing performed by : [facility] [place] [address] MCHC 32.4 32.3 - 35.7 g/dL CERNER CH Comment:Testing performed by : [facility] [place] [address] RDW CV 12.7 11.1 - 14.9 % CERNER CH Comment:Testing performed by : [facility] [place] [address] RDW SD 42.8 35.7 - 48.1 fL CERNER CH Comment:Testing performed by : [facility] [place] [address] NRBC abs 0.00 0.00 - 0.01 K/cumm CERNER CH Comment:Testing performed by : [facility] [place] [address] Blood 10/26/2024 9:45 AM BILLET EXAMINER 10/26/2024 9:46 AM BILLET EXAMINER Samm Velasco MD LAB BLOOD ORDERAB LES Final Result Performing Organization Address [facility] Co de Phone Number BETTINA [place] [address] [address] [facility] [place] [address] * TSH (10/26/2024 9:45 AM BILLET EXAMINER) Pathologist [facility] Thyroid Stimulating Hormone 2.41 0.30 - 4.20 mcIUnit/mL Blood 10/26/2024 9:45 AM BILLET EXAMINER 10/26/2024 11:53 AM BILLET EXAMINER Samm Velasco MD LAB BLOOD ORDERAB LES Final Result Performing Organization Address [facility] Co de Phone Number ASHANTIJUDITH CAM [address] [address] [place] [address] * PTH (10/26/2024 9:45 AM BILLET EXAMINER) Pathologist [facility] PTH 29 15 - 65 pg/mL Blood 10/26/2024 9:45 AM BILLET EXAMINER 10/26/2024 11:53 AM BILLET EXAMINER Samm Velasco MD LAB BLOOD ORDERAB LES Final Result Performing Organization Address [facility] de Phone Number BETTINA ACM [address] [place] [address] * (ABNORMAL) Comprehensive metabolic panel (10/26/2024 9:45 AM BILLET EXAMINER) Pathologist [facility] Sodium 137 135 - 145 mmol/L Comment:Testing performed by : [facility] [place] [address] Potassium, pl 4.4 3.3 - 4.9 mmol/L BETTINA Comment:Testing performed by : [facility] [place] [address] Chloride 101 97 - 110 mmol/L BETTINA Comment:Testing performed by : [facility] [place] [address] CO2 29 22 - 32 mmol/L CERNER CH Comment:Testing performed by : [facility] [place] [address] Anion gap 7 2 - 15 mmol/L CERNER CH Comment:Testing performed by : [facility] [place] [address] BUN 13 6 - 25 mg/dL CERNER CH Comment:Testing performed by : [facility] [place] [address] Creatinine 0.88 0.60 - 1.10 mg/dL CERNER CH Comment:Testing performed by : [facility] [place] [address] Glucose 141 70 - 199 mg/dL CERNER [...] classification and Diagnosis of Diabetes Diabetes Care 202; 46: S19-S40. Current interpretive data was last revised 2022. Testing performed by: [facility] [place] [address] Calcium 10.8(H) 8.5 - 10.3 mg/dL CERNER CH Comment:Testing performed by : [facility] [place] [address] Bilirubin, total 1.0 0.1 - 1.2 mg/dL CERNER CH Comment:Testing performed by : [facility] [place] [address] Protein, pl 7.4 6.5 - 8.5 g/dL CERNER CH Comment:Testing performed by : [facility] [place] [address] Albumin 4.6 3.5 - 5.0 g/dL CERNER CH Comment:Testing performed by : [facility] [place] [address] Alk phos 90 40 - 130 Units/L CERNER CH Comment:Testing performed by : [facility] [place] [address] ALT 20 7 - 45 Units/L BETTINA Comment:Testing performed by : [facility] at [facility] [place] [address] AST 25 10 - 45 Units/L BETTINA Comment:Testing performed by : [facility] at [facility] [place] [address] Blood 10/26/2024 9:45 AM BILLET EXAMINER 10/26/2024 9:46 AM BILLET EXAMINER Samm Velasco MD LAB BLOOD ORDERAB LES Final Result [facility]TINA [address] [address] Department [place] [address] * SIGNATERA + ALTERA (COMBO) (10/26/2024) REPORT SUMMARY See Notes 11/19/2024 12:56 PM CDT [facility] Comment:Laboratory processin g could not proceed due to poor DNA quality and/or quantity. Repair Report customer care can be reached by telephone at [phone], by FAX at [phone], and by email at [email or web address]. For more information regarding tissue collection, please visit this page: [email or web address]. FOOTNOTES See Notes 11/19/2024 12:56 PM CDT [facility] Comment:Test Interpreted by Repair Report: [address] [place] [id number]: CLIA ID #[id number]: CLIA Medical Van Driver: Kelvin Paniagua, Ph.D., [facility]. Test Performed by [facility]: [address], [address]: CLIA ID # [id number]: CLIA Medical Van Driver: Tianna Hannah Blood specimen (specimen) Venous blood specimen / Unknown 10/26/2024 11/19/2024 12:56 PM CDT Samm Velasco MD LAB GENETIC TESTI NG Final Result [facility] [address] [place] [address], [facility] * SIGNATERA ONLY (10/26/2024) SIGNATERA TEST RESULT NEGATIVE 04/2025 10:16 PM BILLET EXAMINER [facility] SIGNATERA MTM READOUT 0 MTM/ml 04/2025 10:16 PM BILLET EXAMINER [facility] Comment: Limitations Signatera is a [...] due to limited ctDNA shed. 1 Esteban RAINES, Marcelo LACYC, Katie MARTINO, et al. Personalized circulating tumor DNA analysis as a predictive biomarker in solid tumor patients treated with pembrolizumab. Nature Cancer. 2020;1(9):873-881. 2 [employer], Alfredo Wallace, et al., Circulating Tumor DNA in Stage III Colorectal Cancer, beyond Minimal Residual Disease Detection, toward Assessment of Adjuvant Therapy Efficacy and Clinical Behavior of Recurrences. Clin Cancer Res. 202; 28(3):507-517. Methodology FFPE samples are assessed by a pathologist to identify tumor margins and percent tumor content. Tumor DNA is extracted using Qiagen AllPrep. Whole genomic DNA is isolated from peripheral blood using QIAamp DNA Blood Mini Kit to provide a baseline DNA sequence. Circulating tumor DNA (ctDNA) is extracted from plasma derived from whole blood samples collected in cell-free DNA blood tubes ([employer]) using the QIASonoMedicamphony automated or manual extraction method (Qiagen). Using a proprietary algorithm, putative, clonal variants present in the tumor but absent in the germline DNA are identified to design the customized multiplex PCR assay. Whole-exome sequencing is performed on tumor and peripheral blood DNA using [place]the [employer] library kit ([employer]) with a custom [employer] exome capture ([employer]). Using a proprietary algorithm, putative clonal variants present in the tumor but absent in the germline DNA are identified to design the customized multiplex PCR assay. Circulating tumor DNA is extracted from plasma collected in Streck tubes using LiveRSVP proprietary methods. The customized PCR assays are [...] and whole exome sequencing are performed at [facility] (CLIA ID# [id number]) [address] [place] [address]. Disclaimer The extraction, library preparation, and sequencing for this test were performed by [employer] [address] [facility], [facility] [address], [place] [address] (CLIA ID [id number]). The data analysis and reporting for this test were performed by [employer] [address], [place] [address] (CLIA ID [id number]). This test was developed and its performance characteristics determined by [employer]. The test has not been cleared or approved by the U.S. Food and Drug Administration (FDA). CAP accredited, ISO 24019 certified, and CLIA certified. Pathology services and whole exome sequencing for this test were performed by [facility] [address] [place] [id number] (CLIA ID [id number]). 2020 [employer]. All Rights Reserved. Blood specimen (specimen) Venous blood specimen / Unknown 10/26/2024 11/18/2024 10:16 PM BILLET EXAMINER Samm Velasco MD LAB GENETIC TESTI NG Final Result [facility] [address] [place], [place] [id number] [place] [address] * SCAN - PATHOLOGY (10/26/2024) Provider Scanning Edited Result - Final * SD AN PROCEDURE PLACEHOLDER (09/22/2024 7:59 AM BILLET EXAMINER) Narrative Raciel Ornelas Jr., CRNA - 09/22/2024 7:59 AM BILLET EXAMINER Raciel Ornelas Jr., CRNA 09/22/2024 7:59 AM Peripheral IV Catheter Patient location: OR Staff: Placed by: APPLIANCE MECHANIC: Raciel Ornelas Jr., CRNA Preprocedure prep: Prep solution: alcohol PPE: gloves PIV line: Laterality: left Site: forearm Catheter size: 18 g Technique: anatomical landmarks Procedure details: good blood return Number of attempts: 1 Assessment: Events: patient tolerated procedure well with no complications Dominick Richmond MD ANESTHESIA ORDERABLES Final Res ult * SD AN ELECTIVE ENDOTRACHEAL AIRWAY, SD AN PROCEDURE PLACEHOLDER (09/22/2024 7:58 AM BILLET EXAMINER) Narrative Raciel Ornelas Jr., CRNA - 09/22/2024 7:58 AM BILLET EXAMINER Raciel Ornelas Jr., CRNA 09/22/2024 7:59 AM Airway Patient location: OR Urgency: elective Difficult airway: no Staff: Supervising provider: Dominick Richmond MD Placed by: APPLIANCE MECHANIC: Raciel Ornelas Jr., CRNA Emergent airway documentation: [...] . Patient is status post left mastectomy. Robyn García MD PhD IMG MAMMO PROCEDURES Final Result from Last 3 Months or Most Recently Relevant to Health Maintenance [place] Care Teams Python Developer Relationship Specialty Start Date End Date No, Physician PCP - General 02/03/23 Loren Martinez MD [address] [facility] [address] [facility] [address] [place] [address] Referring Physician Obstetrics and Gynecology 02/01/23 Samm Velasco MD [address] [facility], [facility] [address] [place] [address] Consulting Physician Medical Oncology 03/30/23
--- OUTSIDE RECORDS SUMMARY | 2024-12-21 15:56 | XMS_ITS ---
Author Organization [facility] Address [address] [place] [id number] Care Team Providers Care Cam Maker Name Role Phone Loren Martinez MD Unavailable [phone] No, Physician Primary Care Provider [phone] Samm Velasco MD Unavailable Active Problems Problem Noted Date Diagnosed Date H/O left mastectomy 06/15/2024 S/P breast reconstruction, left 09/19/2023 Infected breast tissue acting section chief 09/07/2023 Hx antineoplastic chemotherapy 07/12/2023 Malignant neoplasm of upper- inner quadrant of left breast in female, estrogen receptor positive 04/06/2023 Breast lesion on mammography 03/03/2023 Current Treatment and Therapy Plans No current plan information found. Past Treatment and Therapy Plans Line Care Plan Name Start Date Discontinue Date Treatment Medications Discontinue Reason Plan Provider IV Maintenance Therapy Plan 04/22/2023 06/01/2024 No medications scheduled. Therapy Complete Samm Velasco MD Oncology Chemotherapy Treatment Plan Name Start Date Discontinue Date Treatment Medications Discontinue Reason Plan Provider Cycles Ado-Trastuzuma b Emtansine (Kadcyla) 21 Day Cycles - Breast 09/01/20 23 2024 ado-trastuzuma b emtansine (KADCYLA)ado-t rastuzumab emtansine (KADCYLA) IVPB Therapy Complete Samm Velasco MD 14 of 14 cycles started [id number] - [facility] - Breast - Neoadjuvant Pertuzumab / Trastuzumab / Docetaxel 3 08/17/2023 DOCEtaxel (TAXOTERE) IVPB in 250 mL (vial 20mg/mL)pertuz umab (PERJETA)pertu zumab (PERJETA) IVPBtrastuzuma b-anns (KANJINTI)tras tuzumab-anns (KANJINTI) IVPB Therapy Complete Samm Velasco MD 5 of 6 cycles started Lifetime Dose Tracking * Chemical Lifetime Dose Automatic Entry Manual Entr y Fluoro Time 0.292 minutes 0.292 minutes 0 minutes Air kerma at the reference point (Ka,r) 2.52 mGy 2 .52 mGy 0 mGy
[2024-12-21 16:18] VITALS: BP 159/85; PULSE 73; RESP 16; TEMP 36.6; O2SAT 98
--- OUTSIDE RECORDS SUMMARY | 2024-12-21 17:40 | XMS_ITS | Referral Summary ---
Author Organization [facility] r Address [address] [place] [address] Care Team Providers Care Subassembler Name Role Phone Loren Martinez MD Unavailable [phone] No, Physician Primary Care Provider [phone] Samm Velasco MD Unavailable Encounters Date Type Department Care Team Description 11/29/2024 Results Follow-Up [facility] [address] [facility] Floor 8 [place] [phone] Estela Currie NP 11/28/2024 Telephone [facility] [address] [place] [address] Randi Sofia, RN rom 11/24/2024 Telephone [facility] [address] [place] [address] Randi Sofia, RN ted 11/22/2024 Telephone [facility] [address] [place] [address] Randi Sofia, data modeler denial 11/17/2024 Telephone [facility] Surgery [address] [place] [address] Advanced Medicine 6th [place] [address] Elizabeth Hartman CMA 11/17/2024 Telephone [facility] Surgery [address] [place] [address] Advanced Medicine 6th [place] [address] Ivory Cedeno MD 11/09/2024 9:15 AM HAT PRESSER Office Visit [facility] Surgery [address] [facility] 6th [place] [address] Ivory Cedeno MD Malignant neoplasm of female breast, unspecified estrogen receptor status, unspecified laterality, unspecified site of breast (HCC) (Primary Dx) 10/26/[address] [facility] Scanning, Provider 10/26/2024 Orders Only [facility] [address] [place], [place] [address] [place] [address] Samm Velasco MD Malignant neoplasm of upper-inner quadrant of left breast in female, estrogen receptor positive (HCC) (Primary Dx) 10/26/2024 9:30 AM HAT PRESSER Clinical Support [place] [address] [place] [address] 10/26/2024 10:00 AM HAT PRESSER Office Visit [facility] [address] [place], [place] [address] [place] [address] Samm Velasco MD Malignant neoplasm of upper-inner quadrant of left breast in female, estrogen receptor positive (HCC) (Primary Dx); Hypercalcemia 10/26/2024 1:52 PM HAT PRESSER - 10/26/2024 11:59 PM HAT PRESSER Hospital Encounter [facility] [address] [place] [phone] Malignant neoplasm of upper-inner quadrant of left breast in female, estrogen receptor positive (HCC); Hypercalcemia Discharge Disposition: Discharge to home or self care 2024 Orders Only [facility] Oncology [facility] [place] [address] Samm Velasco MD Malignant neoplasm of upper-inner quadrant of left breast in female, estrogen receptor positive (HCC) (Primary Dx) 09/28/2024 10:30 AM HAT PRESSER Office Visit [facility] Surgery [facility] 6th [place] [address] Ana Jaimes NP Malignant neoplasm of upper-inner quadrant of left breast in female, estrogen receptor positive (HCC) (Primary Dx) 09/22/2024 7:30 AM HAT PRESSER - 09/22/2024 10:45 AM HAT PRESSER Surgery [facility] Operating [facility]) [address] [place] [address] Ivory Cedeno MD MASTOPEXY 09/22/2024 7:32 AM HAT PRESSER Anesthesia Event [facility] ([facility]) [address] [place] [address] Dominick Richmond MD McGowan, Sarah Brown, SENIOR RESEARCH PROJECT MANAGER 09/22/2024 5:37 AM HAT PRESSER - 09/22/2024 12:23 PM HAT PRESSER Hospital Encounter [facility] ([facility]) [address] [place] [address] Ivory Cedeno MD H/O left mastectomy (Primary Dx); Breast lesion on mammography; Hx antineoplastic chemotherapy; Infection of breast tissue assistant office manager, subsequent encounter Discharge Disposition: Discharge to home [...] breast reconstruction, left 09/19/2023 Infected breast tissue assistant office manager 09/07/2023 Hx antineoplastic chemotherapy 07/12/2023 Malignant neoplasm [...] How often do you attend chur or taoist services? Never 06/22/2024 Do you belong to any clubs o r organizations such as buddhism groups, unions, fraternal or athletic groups, or [...] Recorded Patient Health Questionnaire-2 Score 0 06/22/2024 [facility] - Occupational Stress [...] place to sleep or slept in a prison (including now)? No 08/12/2023 Personal Safety Answer Date Recorded Have you ever been in or are you currently in a harmful physical or emotional relationship or is someone making you feel afraid or unsafe? Denies 09/22/2024 Comments No Sex and Gender Information Value Date Recorded Sex Assigned at Not on file Legal Sex Female 9:13 AM HAT PRESSER Gender Identity Not on file Sexual Orientation Not on file Last Filed Vital Signs Vital Sign Reading Time Taken Comments Blood Pressure 131/83 10/26/2024 10:01 AM HAT PRESSER Pulse 77 10/26/2024 10:01 AM HAT PRESSER Temperature 36.8 C (98.2 F) 10/26/2024 10:01 AM HAT PRESSER Respiratory Rate 18 10/26/2024 10:01 AM HAT PRESSER Oxygen Saturation 98% 10/26/2024 10:01 AM HAT PRESSER Inhaled Oxygen Concentration - - Weight 80.4 kg (177 lb 3.2 oz) 10/26/2024 10:01 AM HAT PRESSER Height 174 cm (5' 8.5 ) 10/26/2024 10:01 AM HAT PRESSER Body Mass Index 26.55 10/26/2024 10:01 AM HAT PRESSER Plan of Treatment Upcoming Encounters Date Type Department Care Team (Late st Contact Info) Description 07/06/2025 Hospital Encounter [facility]) [address] [place] [address] Ivory Cedeno MD [address] [facility] [phone] [place] [address] Scheduled Procedures Name Priority Associated Diagnoses Date/Ti me EXCHANGE IMPLANT BREAST H/O left mastectomy MASTOPEXY H/O left mastectomy FAT GRAFTING H/O left mastectomy CAPSULECTOMY BREAST H/O left mastectomy Medical Devices Implanted Type Area Lacquer Sizer Device Identifier Shelf Expiration Date Model / Serial / Lot [employer] Implant Breast Moderate Plus Profile Smooth Memorygel Boost 320cc Gel [id number] - [id number] - [id number] Implanted:Qty: 1 on 09/22/2024 by Ivory Cedeno MD at [facility] Breast Left: Breast [employer] [id number] 10/12/2028 [id number] / [id number] / [id number] [employer] Ultraclip Bard 17ga 10cm 2 Trigger Permanent Ultrasound [id number] - [id number] - [id number] Implanted:Qty: 1 on 03/17/2023 at [facility] Clip Left: Breast [employer] [id number] 06/10/2025 [id number] / [id number] / Description:Heart shape [employer] Magtrace Liquid Marker 10 Vial Carton [id number] - [id number] Implanted:Qty: 1 on 08/04/2023 by Robyn García MD PhD at [facility] Left: Breast [employer] 02/10/2024 [id number] / / [id number] [employer] Alloderm Select [id number] Allograft Regenerative Freeze Dried [id number] - [id number] - [id number] Implanted:Qty: 1 on 01/31/2024 by Ivory Cedeno MD at [facility] Left: Breast [employer] [id number] 09/12/2024 [id number] / [id number] / [id number] Explanted Type Area Lacquer Sizer Device Identifier Shelf Expiration Date Model / Serial / Lot [employer] Port Implantable Infusion Smart Port Fluoromax Vortex Safesheath Ultra Lite Titanium Polyurethane L66cm Od8fr [id number] Idsec1.5mm 0.7ml 0.02ml Detach Catheter Introducer Power Injectable R Implanted:Qty: 1 on 04/14/2023 by Robyn García MD PhD at [facility] Explanted:Qty: 1 on 09/22/2024 by Ivory Cedeno MD at [facility] Right: Chest [employer] 01/10/2026 [id number] / / [id number] Description:Right Subclavian Port-A-Cath [employer] Soloist Dancer Breast Ultra High Profile Round Smooth Artoura Plus 455cc Silicone [address] - [id number] Implanted:Qty: 1 on 08/04/2023 by Ivory Cedeno MD at [facility] Explanted:Qty: 1 on 09/22/2024 by Ivory Cedeno MD at [facility] Left: Breast [employer] [id number] 05/23/[address] / / [id number] Description:Patient has no I mplants after left one removed just now. I explanted two left implants that were in the system, one of which, was removed today. Don't know when the other was put in, or removed. We will replace a LEFT implant today, Right is Mastopexy only. [employer] Soloist Dancer Breast Ultra High Profile Round Smooth Artoura Plus 350cc Silicone [id number] - [id number] - [id number] Implanted:Qty: 1 on 01/31/2024 by Ivory Cedeno MD at [facility] Explanted:Qty: 1 on 09/22/2024 by Ivory Cedeno MD at [facility] Left: Breast [employer] [id number] 12/30/[address] / [id number] Description:Patient has no I mplants after left one removed just now. I explanted two left implants that were in the system, one of which, was removed today. Don't know when the other was put in, or removed. We will replace a LEFT implant today, Right is Mastopexy only. Procedures Procedure Name Priority Date/Time Associated Diagnosis Comments PTH Routine 10/26/2024 9:45 AM HAT PRESSER Hypercalcemia TSH Routine 10/26/2024 9:45 AM HAT PRESSER Hypercalcemia EGFR Routine 10/26/2024 9:45 AM HAT PRESSER Malignant neoplasm of upper-inner quadrant of left breast in female, estrogen receptor positive (HCC) DIFFERENTIAL AUTO Routine 10/26/2024 9:4 5 AM HAT PRESSER Malignant neoplasm of upper-inner quadrant of left breast in female, estrogen receptor positive (HCC) CBC WITH AUTO DIFFERENTIAL Routine 10/26/2024 9:45 AM HAT PRESSER Malignant neoplasm of upper-inner quadrant of left breast in female, estrogen receptor positive (HCC) COMPREHENSIVE METABOLIC PANEL Routine 10/26/2024 9:45 AM HAT PRESSER Malignant neoplasm of upper-inner quadrant of left breast in female, estrogen receptor positive (HCC) SCAN - PATHOLOGY 10/26/2024 SIGNATERA + ALTERA (COMBO) Routine 10/26/2024 Malignant neoplasm of upper-inner quadrant of left breast in female, estrogen receptor positive (HCC) SIGNATERA ONLY Routine 10/26/2024 Malignant neoplasm of upper-inner quadrant of left breast in female, estrogen receptor positive (HCC) AL AN PROCEDURE PLACEHOLDER Routine 09/22/2024 7:59 AM HAT PRESSER AL AN PROCEDURE PLACEHOLDER Routine 09/22/2024 7:58 AM HAT PRESSER AL AN ELECTIVE ENDOTRACHEAL AIRWAY Routine 09/22/2024 7:58 AM HAT PRESSER REVISION BREAST 09/22/2024 7:33 AM HAT PRESSER H/O left mastectomy Case Notes 09/04@1604- Can you please reschedule this patient from the depot to 09/22/24?... Patient was previously scheduled on 09/11 and now needs to be placed at first start on 09/22/24- [facility] 06/19 - MISSING DPC, EMAIL SENT. NB Special Needs general, supine, no block, 0.25% marcaine +epi, plastic tray, liposuction set, and Rep FAT GRAFTING 09/22/2024 7:33 AM HAT PRESSER H/O left mastectomy Case Notes 09/04@1604- Can you please reschedule this patient from the depot to 09/22/24?... Patient was previously scheduled on 09/11 and now needs to be placed at first start on 09/22/24- [facility] 06/19 - MISSING DPC, EMAIL SENT. NB Special Needs general, supine, no block, 0.25% marcaine +epi, plastic tray, liposuction set, and Rep REMOVAL VASCULAR ACCESS PORT-A-CATH 09/22/2024 7:33 AM HAT PRESSER H/O left mastectomy Case Notes 09/04@1604- Can you please reschedule this patient from the depot to 09/22/24?... Patient was previously scheduled on 09/11 and now needs to be placed at first start on 09/22/24- [facility] 06/19 - MISSING DPC, EMAIL SENT. NB Special Needs general, supine, no block, 0.25% marcaine +epi, plastic tray, liposuction set, and Rep EXCHANGE IMPLANT BREAST 09/22/2024 7:33 AM HAT PRESSER H/O left mastectomy Case Notes 09/04@1604- Can you please reschedule this patient from the depot to 09/22/24?... Patient was previously scheduled on 09/11 and now needs to be placed at first start on 09/22/24- [facility] 06/19 - MISSING DPC, EMAIL SENT. NB Special Needs general, supine, no block, 0.25% marcaine +epi, plastic tray, liposuction set, and Rep MASTOPEXY 09/22/2024 7:33 AM HAT PRESSER H/O left mastectomy Case Notes 09/04@1604- Can [...] Maintenance Results * eGFR (10/26/2024 9:45 AM HAT PRESSER) eGFR 75 >=60 mL/min/1. 73 m2 Comment: [...] was last reviewed 2021. Testing performed by: [facility] [place] [address] Blood 10/26/2024 9:45 AM HAT PRESSER 10/26/2024 9:46 AM HAT PRESSER us Samm Velasco MD LAB BLOOD ORDERAB LES Final Result [facility] [address] [address] Department [place] [address] * Differential, auto (10/26/2024 9:45 AM HAT PRESSER) Neutrophil abs 2.8 1.5 - 6.5 K/cumm Comment:Testing performed by : [facility] [place] [address] Imm gran abs 0.0 0.0 - 0.1 K/cumm CERNER CH Comment:Testing performed by : [facility] [place] [address] Lymphocyte abs 1.7 0.8 - 3.3 K/cumm CERNER CH Comment:Testing performed by : [facility] [place] [address] Monocyte abs 0.4 0.2 - 0.8 K/cumm CERNER CH Comment:Testing performed by : [facility] [place] [address] Eosinophil abs 0.1 0.0 - 0.5 K/cumm CERNER CH Comment:Testing performed by : [facility] [place] [address] Basophil abs 0.0 0.0 - 0.1 K/cumm CERNER CH Comment:Testing performed by : [facility] [place] [address] Neutrophil pct 56.3 % CERNER CH Comment: Interpretive Data Percent cell count reference ranges are not reported, since discordance with absolute values may lead to misinterpretation of CBC data. Current Interpretive Data was last revised on 2017. Testing performed by: [facility] [place] [address] Imm gran pct 0.2 % CERNER Comment: Interpretive Data Percent cell count reference ranges are not reported, since discordance with absolute values may lead to misinterpretation of CBC data. Current Interpretive Data was last revised on 2017. Testing performed by: [facility] [place] [address] Lymphocyte pct 33.7 % CERNER Comment: Interpretive Data Percent cell count reference ranges are not reported, since discordance with absolute values may lead to misinterpretation of CBC data. Current Interpretive Data was last revised on 2017. Testing performed by: [facility] [place] [address] Monocyte pct 7.0 % CERNER Comment: Interpretive Data Percent cell count reference ranges are not reported, since discordance with absolute values may lead to misinterpretation of CBC data. Current Interpretive Data was last revised on 2017. Testing performed by: [facility] [place] [address] Eosinophil pct 2.0 % CERNER Comment: Interpretive Data Percent cell count reference ranges are not reported, since discordance with absolute values may lead to misinterpretation of CBC data. Current Interpretive Data was last revised on 2017. Testing performed by: [facility] [place] [address] Basophil pct 0.8 % CERNER Comment: Interpretive Data Percent cell count reference ranges are not reported, since discordance with absolute values may lead to misinterpretation of CBC data. Current Interpretive Data was last revised on 2017. Testing performed by: [facility] [place] [address] Blood 10/26/2024 9:45 AM HAT PRESSER 10/26/2024 9:46 AM HAT PRESSER us Samm Velasco MD LAB BLOOD ORDERAB LES Final Result [facility] [address] Department of Laboratories [place], [place] [id number] * CBC with auto differential (10/26/2024 9:45 AM HAT PRESSER) WBC 5.0 3.8 - 9.9 K/cumm Comment:Testing performed by : [facility] [place] [address] Hgb 13.7 11.9 - 15.5 g/dL CERNER CH Comment:Testing performed by : [facility] [place] [address] Hct 42.3 35.6 - 45.5 % CERNER CH Comment:Testing performed by : [facility] [place] [address] Plt 226 150 - 400 K/cumm CERNER CH Comment:Testing performed by : [facility] [place] [address] MPV 10.4 9.1 - 12.3 fL CERNER CH Comment:Testing performed by : [facility] [place] [address] RBC 4.60 3.90 - 5.20 M/cumm CERNER CH Comment:Testing performed by : [facility] [place] [address] MCV 92.0 81.3 - 96.4 fL CERNER CH Comment:Testing performed by : [facility] [place] [address] MCH 29.8 27.1 - 33.3 pg CERNER CH Comment:Testing performed by : [facility] [place] [address] MCHC 32.4 32.3 - 35.7 g/dL CERNER CH Comment:Testing performed by : [facility] [place] [address] RDW CV 12.7 11.1 - 14.9 % CERNER CH Comment:Testing performed by : [facility] [place] [address] RDW SD 42.8 35.7 - 48.1 fL CERNER CH Comment:Testing performed by : [facility] [place] [address] NRBC abs 0.00 0.00 - 0.01 K/cumm CERNER CH Comment:Testing performed by : [facility] [place] [address] Blood 10/26/2024 9:45 AM HAT PRESSER 10/26/2024 9:46 AM HAT PRESSER Samm Velasco MD LAB BLOOD ORDERAB LES Final Result Performing Organization Address [facility] Co de Phone Number BETITNA CAM [address] [address] [facility] [place] [address] * TSH (10/26/2024 9:45 AM HAT PRESSER) Pathologist [facility] Thyroid Stimulating Hormone 2.41 0.30 - 4.20 mcIUnit/mL Blood 10/26/2024 9:45 AM HAT PRESSER 10/26/2024 11:53 AM HAT PRESSER Samm Velasco MD LAB BLOOD ORDERAB LES Final Result Performing Organization Address [facility] Co de Phone Number ASHANTIJUDIHT CAM [address] [address] [place] [address] * PTH (10/26/2024 9:45 AM HAT PRESSER) Pathologist [facility] PTH 29 15 - 65 pg/mL Blood 10/26/2024 9:45 AM HAT PRESSER 10/26/2024 11:53 AM HAT PRESSER Samm Velasco MD LAB BLOOD ORDERAB LES Final Result Performing Organization Address [facility] de Phone Number BETTINA [place] [address] [place] [address] * (ABNORMAL) Comprehensive metabolic panel (10/26/2024 9:45 AM HAT PRESSER) Pathologist [facility] Sodium 137 135 - 145 mmol/L Comment:Testing performed by : [facility] [place] [address] Potassium, pl 4.4 3.3 - 4.9 mmol/L BETTINA Comment:Testing performed by : [facility] [place] [address] Chloride 101 97 - 110 mmol/L BETTINA Comment:Testing performed by : [facility] [place] [address] CO2 29 22 - 32 mmol/L CERNER CH Comment:Testing performed by : [facility] [place] [address] Anion gap 7 2 - 15 mmol/L CERNER CH Comment:Testing performed by : [facility] [place] [address] BUN 13 6 - 25 mg/dL CERNER CH Comment:Testing performed by : [facility] [place] [address] Creatinine 0.88 0.60 - 1.10 mg/dL CERNER CH Comment:Testing performed by : [facility] [place] [address] Glucose 141 70 - 199 mg/dL CERNER [...] was last revised 2022. Testing performed by: [facility] [place] [address] Calcium 10.8(H) 8.5 - 10.3 mg/dL CERNER CH Comment:Testing performed by : [facility] [place] [address] Bilirubin, total 1.0 0.1 - 1.2 mg/dL CERNER CH Comment:Testing performed by : [facility] [place] [address] Protein, pl 7.4 6.5 - 8.5 g/dL CERNER CH Comment:Testing performed by : [facility] [place] [address] Albumin 4.6 3.5 - 5.0 g/dL CERNER CH Comment:Testing performed by : [facility] [place] [address] Alk phos 90 40 - 130 Units/L CERNER CH Comment:Testing performed by : [facility] [place] [address] ALT 20 7 - 45 Units/L BETTINA Comment:Testing performed by : [facility] at [facility] [place] [address] AST 25 10 - 45 Units/L BETTINA Comment:Testing performed by : [facility] at [facility] [place] [address] Blood 10/26/2024 9:45 AM HAT PRESSER 10/26/2024 9:46 AM HAT PRESSER Samm Velasco MD LAB BLOOD ORDERAB LES Final Result [facility] [address] [address] Department [place] [address] * SIGNATERA + ALTERA (COMBO) (10/26/2024) REPORT SUMMARY See Notes 11/19/2024 12:56 PM CDT [facility] Comment:Laboratory processin g could not proceed due to poor DNA quality and/or quantity. [facility] customer care can be reached by telephone at [phone], by FAX at [phone], and by email at [email or web address]. For more information regarding tissue collection, please visit this page: [email or web address] FOOTNOTES See Notes 11/19/2024 12:56 PM CDT [facility] Comment:Test Interpreted by [facility]: [address] [place] [id number]: CLIA ID #[id number]: CLIA [employer] [facility]: Kelvin Paniagua, Ph.D., [facility]. Test Performed by [facility]: [address], [address]: CLIA ID # [id number]: CLIA [employer] Winder: Tianna Hannah Blood specimen (specimen) Venous blood specimen / Unknown 10/26/2024 11/19/2024 12:56 PM CDT Samm Velasco MD LAB GENETIC TESTI NG Final Result [facility] [address] [place] [address], [facility] * SIGNATERA ONLY (10/26/2024) SIGNATERA TEST RESULT NEGATIVE 04/2025 10:16 PM HAT PRESSER [facility] SIGNATERA MTM READOUT 0 MTM/ml 04/2025 10:16 PM HAT PRESSER [facility] Comment: Limitations Signatera is a [...] samples collected in cell-free DNA blood tubes ([employer]) using the QIAIris Experiencemphony automated or manual extraction method (Qiagen). Using a proprietary algorithm, putative, clonal variants present in the tumor but absent in the germline DNA are identified to design the customized multiplex PCR assay. Whole-exome sequencing is performed on tumor and peripheral blood DNA using CamSemiA MicrimaPrep library kit ([employer]) with a custom EZ2CAD exome capture ([employer]). Using a proprietary algorithm, putative clonal variants present in the tumor but absent in the germline DNA are identified to design the customized multiplex PCR assay. Circulating tumor DNA is extracted from plasma collected in Streck tubes using lensgen proprietary methods. The customized PCR assays are [...] and whole exome sequencing are performed at [facility] (CLIA ID# [id number]) [address] [place] [address]. Disclaimer The extraction, library preparation, and sequencing for this test were performed by [facility] [address] [facility] [address], [place] [address] (CLIA ID [id number]). The data analysis and reporting for this test were performed by [facility] [address], [place] [address] (CLIA ID [id number]). This test was developed and its performance characteristics determined by [facility]. The test has not been cleared or approved by the U.S. Food and Drug Administration (FDA). CAP accredited, ISO 74455 certified, and CLIA certified. Pathology services and whole exome sequencing for this test were performed by [facility] [address] [place] [id number] (CLIA ID [id number]). 2020 [employer]. All Rights Reserved. Blood specimen (specimen) Venous blood specimen / Unknown 10/26/2024 11/18/2024 10:16 PM HAT PRESSER Samm Velasco MD LAB GENETIC TESTI NG Final Result [facility] [address] [place], [place] [id number] [place] [address] * SCAN - PATHOLOGY (10/26/2024) Provider Scanning Edited Result - Final * AL AN PROCEDURE PLACEHOLDER (09/22/2024 7:59 AM HAT PRESSER) Narrative Raciel Ornelas Jr., CRNA - 09/22/2024 7:59 AM HAT PRESSER Raciel Ornelas Jr., CRNA 09/22/2024 7:59 AM Peripheral IV Catheter Patient location: OR Staff: Placed by: WASHTUB WORKER: Raciel Ornelas Jr., CRNA Preprocedure prep: Prep solution: alcohol PPE: gloves PIV line: Laterality: left Site: forearm Catheter size: 18 g Technique: anatomical landmarks Procedure details: good blood return Number of attempts: 1 Assessment: Events: patient tolerated procedure well with no complications Dominick Richmond MD ANESTHESIA ORDERABLES Final Res ult * AL AN ELECTIVE ENDOTRACHEAL AIRWAY, AL AN PROCEDURE PLACEHOLDER (09/22/2024 7:58 AM HAT PRESSER) Narrative Raciel Ornelas Jr., CRNA - 09/22/2024 7:58 AM HAT PRESSER Raciel Ornelas Jr., CRNA 09/22/2024 7:59 AM Airway Patient location: OR Urgency: elective Difficult airway: no Staff: Supervising provider: Dominick Richmond MD Placed by: WASHTUB WORKER: Raciel Ornelas Jr., CRNA Emergent airway documentation: [...] BL CHO[place]F [place] Care Teams Subassembler Relationship Specialty Start Date End Date No, Physician PCP - General 02/03/23 Loren Martinez MD [address] [facility] 200 [facility] 200 [place] [address] Referring Physician Obstetrics and Gynecology 02/01/23 Samm Velasco MD [address] [facility], [facility] [address] [place] [address] Consulting Physician Medical Oncology 03/30/23
--- OUTSIDE RECORDS SUMMARY | 2024-12-21 17:40 | XMS_ITS | Encounter Summary ---
Author Organization [facility] Address [address] [place] [address] Care Team Providers Care Client Account Representative Name Role Phone Unavailable Primary Care Provider Unavailabl e Reason for Visit * Diagnostic Imaging (Routine) - Closed Specialty Diagnoses / Procedures Referred By Graciela zaidi Referred To Contact Procedures Breast Imaging Screening Outside Reference Vicente Childers NP Phone: tel: fax: Referral ID Status Reason Start Date Expiration Date Visits Re quested Visits Authorized [id number] Closed 02/22/2023 03/23/2024 1 1 Encounter Details Date Type Department Care Team (Late st Contact Info) Description 10/26/2013 Hospital Encounter [facility] [address] [place] [id number] Social History Tobacco Use Types Packs/Day Years [...] often do you attend chur ch or evangelical services? 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 Gender Identity Not on file Sexual Orientation [...] st Contact Info) Description 07/06/2025 Hospital Encounter [facility] Operating Room [facility] [address] [place] [id number] Ivory Cedeno MD [address] [facility] [phone] [place] [address] Scheduled Procedures Name Priority Associated Diagnoses Date/Ti me EXCHANGE IMPLANT BREAST H/O left mastectomy MASTOPEXY H/O left mastectomy FAT GRAFTING H/O left mastectomy CAPSULECTOMY BREAST H/O left mastectomy documented as of this encounter Procedures Procedure Name Priority Date/Time Associated Diagnosis Comments BREAST IMAGING MG SCREENING OUTSIDE REFERENCE Schedule Routine, Read Routine (OP Routine) 10/26/2013 12:00 AM OFFICE CLERK documented in this encounter Results * Breast Imaging Screening Outside Reference (10/26/2013 12:00 AM OFFICE CLERK) Impressions [facility] - 02/22/2023 11:46 AM CDT These images are for Reference purposes only and have not been reviewed by [facility]iology. There will be no report generated by a [facility] Radiologist. Narrative [facility] - 02/22/2023 11:46 AM CDT EXAMINATION: Images For Reference Purposes Only us Vicente Childers NP IMG MAMMO PROCEDURES Final Result [facility] documented in this encounter Visit Diagnoses Not on filedocumented in this encounter
--- OUTSIDE RECORDS SUMMARY | 2024-12-21 17:40 | XMS_ITS | Encounter Summary ---
Author Organization [facility] Address [address] [place] [address] Phone Care Team Providers Care Python Engineer Name Role Phone Loren Martinez MD Unavailable [phone] No, Physician Primary Care Provider [phone] Samm Velasco MD Unavailable Encounter Details Date [...] often do you attend chur ch or episcopal services? 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 Gender Identity Not on file Sexual Orientation Not on file documented as of this encounter Plan of Treatment Upcoming Encounters Date Type Department Care Team (Late st Contact Info) Description 07/06/2025 Hospital Encounter [facility] Operating Room [facility] [address] [place] [address] Ivory Cedeno MD [address] [facility] [phone] [place], [place] [phone] Scheduled Procedures Name Priority Associated Diagnoses Date/Ti [...] on filedocumented in this encounter Care Teams Python Engineer Relationship Specialty Start Date End Date No, Physician PCP - General 02/03/23 Loren Martinez MD [address] [place] [address] [place] [address] [place] [address] Referring Physician Obstetrics and Gynecology 02/01/23 Samm Velasco MD [address] [facility], [facility] [address] [place] [address] Consulting Physician Medical Oncology 03/30/23 documented as of this encounter
--- OUTSIDE RECORDS SUMMARY | 2024-12-21 17:40 | XMS_ITS | Clinical Summary ---
Author Organization [facility] Address [address] [place] [address] Care Team Providers Care Tutor Name Role Phone Dorothy Shieldslindy Ulloa [facility] Primary Care Provider + Allergies No known [...] Comments Blood Pressure 132/76 10/20/2021 1:[address] ATTENDANT Pulse 75 10/20/2021 1:[address] ATTENDANT Temperature 36.6 C (97.9 F) 10/20/2021 1:[address] ATTENDANT Respiratory Rate 20 10/20/2021 1:[address] ATTENDANT Oxygen Saturation 98% 10/20/2021 1:[address] ATTENDANT Inhaled Oxygen Concentration - - Weight 89.9 kg (198 lb 3.2 oz) 10/20/2021 1:[address] ATTENDANT Height 175.3 cm (5' 9 ) 10/20/2021 1:[address] ATTENDANT Body Mass Index 29.27 10/20/2021 1:[address] ATTENDANT Plan of Treatment Health Maintenance Due Date [...] Most Recently Relevant to Health Maintenance Insurance [facility] Care Teams Tutor Relationship Specialty Start Date End Date Betty Shields, ELECTRICAL HELPER-BC [address] [place] [id number] PCP - General NURSE PRACTITIONER 12/20/23
--- OUTSIDE RECORDS SUMMARY | 2024-12-21 17:40 | XMS_ITS | Clinical Summary ---
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 Floor 8 [place] [phone] Estela Currie NP 11/28/[address]24 [address] [facility] [place] [address] Randi Sofia, JANIA villanueva 11/24/2024 Telephone [facility] [place] [address] Randi Sofia, JANIA lynn 11/22/2024 Telephone [facility] [address] [place] [address] Randi Sofia, chocolate finisher operator denial 11/17/2024 Telephone [facility] Medicine 6th [place] [phone] Elizabeth Hartman [facility] 11/17/2024 Telephone [facility] [address] [facility] Medicine 6th [place] [address] Ivory Cedeno MD 11/09/2024 9:15 AM PLANT PHYSIOLOGY TEACHER Office Visit [facility] [address] [facility] 6th [place] [address] Ivory Cedeno MD Malignant neoplasm of female breast, unspecified estrogen receptor status, unspecified laterality, unspecified site of breast (HCC) (Primary Dx) 10/26/2024 1:52 PM PLANT PHYSIOLOGY TEACHER - 10/26/2024 11:59 PM PLANT PHYSIOLOGY TEACHER Hospital Encounter [facility] [address] [place] [phone] Malignant neoplasm of upper-inner quadrant of left breast in female, estrogen receptor positive (HCC); Hypercalcemia Discharge Disposition: Discharge to home or self care 10/26/2024 10:00 AM PLANT PHYSIOLOGY TEACHER Office Visit [facility] [address] [place] [address] Samm Velasco MD Malignant neoplasm of upper-inner quadrant of left breast in female, estrogen receptor positive (HCC) (Primary Dx); Hypercalcemia 10/26/2024 9:30 AM PLANT PHYSIOLOGY TEACHER Clinical Support [facility] [address] [place] [address] 10/26/2024 Orders Only [facility] Scanning, Provider 10/26/2024 Orders Only [facility] [address] [place] [address] Samm Velasco MD Malignant neoplasm of upper-inner quadrant of left breast in female, estrogen receptor positive (HCC) (Primary Dx) 2024 Orders Only [facility] [place] [address] Samm Velasco MD Malignant neoplasm of upper-inner quadrant of left breast in female, estrogen receptor positive (HCC) (Primary Dx) 09/28/2024 10:30 AM PLANT PHYSIOLOGY TEACHER Office Visit [facility] [address] [place] [address] [facility] 6th [place] [address] [place] [address] Ana Jaimes NP Malignant neoplasm of upper-inner quadrant of left breast in female, estrogen receptor positive (HCC) (Primary Dx) 09/22/2024 7:32 AM PLANT PHYSIOLOGY TEACHER Anesthesia Event [facility] [address] [place] [phone] Dominick Richmond MD McGowan, Jessica Lynn, NP 09/22/2024 7:30 AM PLANT PHYSIOLOGY TEACHER - 09/22/2024 10:45 AM PLANT PHYSIOLOGY TEACHER Surgery [facility]) [address] [place] [address] Ivory Cedeno MD MASTOPEXY 09/22/2024 5:37 AM PLANT PHYSIOLOGY TEACHER - 09/22/2024 12:23 PM PLANT PHYSIOLOGY TEACHER Hospital Encounter [facility] ([facility]) [address] [place] [address] Ivory Cedeno MD H/O left mastectomy (Primary Dx); Breast lesion on mammography; Hx antineoplastic chemotherapy; Infection of breast tissue multi needle machine operator, subsequent encounter Discharge Disposition: Discharge to home or self care from Last 3 Months Surgical History Surgery Date Site/Laterality Comments HYSTERECTOMY 01/11/2001 - 02/10/2001 BREAST BIOPSY 03/17/2023 Left PORTACATH PLACEMENT 04/14/2023 Right MASTECTOMY W/ SENTINEL NODE BIOPSY 08/04/2023 Left with tissue multi needle machine operator TISSUE POT RUNNER REMOVAL 09/08/2023 Left infection TISSUE POT RUNNER PLACEMENT 01/12/2024 - 02/11/2024 BREAST RECONSTRUCTION 09/22/2024 [...] often do you attend chur ch or hoahaoism services? Never 06/22/2024 Do you belong to [...] Recorded Patient Health Questionnaire-2 Score 0 06/22/2024 [facility] Levels of Occupat ional Health - Occupational Stress [...] place to sleep or slept in a chcf (including now)? No 08/12/2023 Personal Safety Answer Date Recorded Have you ever been in or are you currently in a harmful physical or emotional relationship or is someone making you feel afraid or unsafe? Denies 09/22/2024 Comments No Sex and Gender Information Value Date Recorded Sex Assigned at Not on file Legal Sex Female 9:13 AM PLANT PHYSIOLOGY TEACHER Gender Identity Not on file Sexual Orientation Not on file Obstetrics History Para Term AB IAB SAB Ectopic Multiple Livin g Live Births 2 2 2 Date Outcome GA Total Labor Labor/2nd/3rd Weight Sex Type Anes PTL Danna A1 A5 Name Clin Term Term Last Filed Vital Signs Vital Sign Reading Time Taken Comments Blood Pressure 131/83 10/26/2024 10:01 AM PLANT PHYSIOLOGY TEACHER Pulse 77 10/26/2024 10:01 AM PLANT PHYSIOLOGY TEACHER Temperature 36.8 C (98.2 F) 10/26/2024 10:01 AM PLANT PHYSIOLOGY TEACHER Respiratory Rate 18 10/26/2024 10:01 AM PLANT PHYSIOLOGY TEACHER Oxygen Saturation 98% 10/26/2024 10:01 AM PLANT PHYSIOLOGY TEACHER Inhaled Oxygen Concentration - - Weight 80.4 kg (177 lb 3.2 oz) 10/26/2024 10:01 AM PLANT PHYSIOLOGY TEACHER Height 174 cm (5' 8.5 ) 10/26/2024 10:01 AM PLANT PHYSIOLOGY TEACHER Body Mass Index 26.55 10/26/2024 10:01 AM PLANT PHYSIOLOGY TEACHER Plan of Treatment Upcoming Encounters Date Type Department Care Team (Late st Contact Info) Description 07/06/2025 Hospital Encounter [facility] [place] [address] Ivory Cedeno MD [address] [phone] [place] [address] Scheduled Procedures Name Priority Associated Diagnoses Date/Ti [...] history exists Medical Devices Implanted Type Area Systems Applications Programming Lead Device Identifier Shelf Expiration Date Model / Serial / Lot [employer] Implant Breast Moderate Plus Profile Smooth Memorygel Boost 320cc Gel [id number] - [id number] - [id number] Implanted:Qty: 1 on 09/22/2024 by Ivory Cedeno MD at [facility] Breast Left: Breast [employer] [id number] 10/12/2028 [id number] / [id number] Bard Peripheral Vascular Ultraclip Bard 17ga 10cm 2 Trigger Permanent Ultrasound [id number] - [id number] - [id number] Implanted:Qty: 1 on 03/17/2023 at [facility] Clip Left: Breast [employer] [id number] 06/10/2025 [id number] / [id number] / Description:Heart shape [employer] Magtrace Liquid Marker 10 Vial Carton [id number] - [id number] Implanted:Qty: 1 on 08/04/2023 by Robyn García MD PhD at [facility] Left: Breast [employer] 02/10/2024 [id number] / / [id number] AllergOverlay.tv [employer] Alloderm Select 97p05zg Allograft Regenerative Freeze Dried [id number] - [id number] - [id number] Implanted:Qty: 1 on 01/31/2024 by Ivory Cedeno MD at [facility] Left: Breast [employer] [id number] 09/12/2024 [id number] / [id number] / [id number] Explanted Type Area Systems Applications Programming Lead Device Identifier Shelf Expiration Date Model / Serial / Lot Angio Dynamics Port Implantable Infusion Smart Port Fluoromax Vortex Safesheath Ultra Lite Titanium Polyurethane L66cm Od8fr [id number] Idsec1.5mm 0.7ml 0.02ml Detach Catheter Introducer Power Injectable R Implanted:Qty: 1 on 04/14/2023 by Robyn García MD PhD at [facility] Explanted:Qty: 1 on 09/22/2024 by Ivory Cedeno MD at [facility] Right: Chest Ang[employer] Dynamics 01/10/2026 [id number] / / [id number] Description:Right Subclavian Port-A-Cath [employer] Web Analytics Specialist Breast Ultra High Profile Round Smooth Artoura Plus 455cc Silicone [address] - [id number] Implanted:Qty: 1 on 08/04/2023 by Ivory Cedeno MD at [facility] Explanted:Qty: 1 on 09/22/2024 by Ivory Cedeno MD at [facility] Left: Breast [employer] [id number] 05/23/[address] / / [id number] Description:Patient has no I mplants after left one removed just now. I explanted two left implants that were in the system, one of which, was removed today. Don't know when the other was put in, or removed. We will replace a LEFT implant today, Right is Mastopexy only. [employer] Web Analytics Specialist Breast Ultra High Profile Round Smooth Artoura Plus 350cc Silicone [address] - [id number] - [id number] Implanted:Qty: 1 on 01/31/2024 by Ivory Cedeno MD at [facility] Explanted:Qty: 1 on 09/22/2024 by Ivory Cedeno MD at [facility] Left: Breast Newcomb [employer] [facility] [id number] 12/30/2027 [id number] / [id number] Description:Patient has no I mplants after left one removed just now. I explanted two left implants that were in the system, one of which, was removed today. Don't know when the other was put in, or removed. We will replace a LEFT implant today, Right is Mastopexy only. Procedures Procedure Name Priority Date/Time Associated Diagnosis Comments PTH Routine 10/26/2024 9:45 AM PLANT PHYSIOLOGY TEACHER Hypercalcemia TSH Routine 10/26/2024 9:45 AM PLANT PHYSIOLOGY TEACHER Hypercalcemia EGFR Routine 10/26/2024 9:45 AM PLANT PHYSIOLOGY TEACHER Malignant neoplasm of upper-inner quadrant of left breast in female, estrogen receptor positive (HCC) DIFFERENTIAL AUTO Routine 10/26/2024 9:4 5 AM PLANT PHYSIOLOGY TEACHER Malignant neoplasm of upper-inner quadrant of left breast in female, estrogen receptor positive (HCC) CBC WITH AUTO DIFFERENTIAL Routine 10/26/2024 9:45 AM PLANT PHYSIOLOGY TEACHER Malignant neoplasm of upper-inner quadrant of left breast in female, estrogen receptor positive (HCC) COMPREHENSIVE METABOLIC PANEL Routine 10/26/2024 9:45 AM PLANT PHYSIOLOGY TEACHER Malignant neoplasm of upper-inner quadrant of left breast in female, estrogen receptor positive (HCC) SCAN - PATHOLOGY 10/26/2024 SIGNATERA + ALTERA (COMBO) Routine 10/26/2024 Malignant neoplasm of upper-inner quadrant of left breast in female, estrogen receptor positive (HCC) SIGNATERA ONLY Routine 10/26/2024 Malignant neoplasm of upper-inner quadrant of left breast in female, estrogen receptor positive (HCC) GA AN PROCEDURE PLACEHOLDER Routine 09/22/2024 7:59 AM PLANT PHYSIOLOGY TEACHER GA AN PROCEDURE PLACEHOLDER Routine 09/22/2024 7:58 AM PLANT PHYSIOLOGY TEACHER GA AN ELECTIVE ENDOTRACHEAL AIRWAY Routine 09/22/2024 7:58 AM PLANT PHYSIOLOGY TEACHER REVISION BREAST 09/22/2024 7:33 AM PLANT PHYSIOLOGY TEACHER H/O left mastectomy Case Notes 09/04@1604- Can you please reschedule this patient from the depot to 09/22/24?... Patient was previously scheduled on 09/11 and now needs to be placed at first start on 09/22/24- DMF 06/19 - MISSING DPC, EMAIL SENT. NB Special Needs general, supine, no block, 0.25% marcaine +epi, plastic tray, liposuction set, and Rep FAT GRAFTING 09/22/2024 7:33 AM PLANT PHYSIOLOGY TEACHER H/O left mastectomy Case Notes 1604- Can [...] REMOVAL VASCULAR ACCESS PORT-A-CATH 09/22/2024 7:33 AM PLANT PHYSIOLOGY TEACHER H/O left mastectomy Case Notes 09/04@1604- Can you please reschedule this patient from the depot to 09/22/24?... Patient was previously scheduled on 09/11 and now needs to be placed at first start on 09/22/24- DMF 06/19 - MISSING DPC, EMAIL SENT. NB Special Needs general, supine, no block, 0.25% marcaine +epi, plastic tray, liposuction set, and Rep EXCHANGE IMPLANT BREAST 09/22/2024 7:33 AM PLANT PHYSIOLOGY TEACHER H/O left mastectomy Case Notes 09/04@1604- Can you please reschedule this patient from the depot to 09/22/24?... Patient was previously scheduled on 09/11 and now needs to be placed at first start on 09/22/24- DMF 06/19 - MISSING DPC, EMAIL SENT. NB Special Needs general, supine, no block, 0.25% marcaine +epi, plastic tray, liposuction set, and Rep MASTOPEXY 09/22/2024 7:33 AM PLANT PHYSIOLOGY TEACHER H/O left mastectomy Case Notes 09/04@1604- Can [...] Maintenance Results * eGFR (10/26/2024 9:45 AM PLANT PHYSIOLOGY TEACHER) eGFR 75 >=60 mL/min/1. 73 m2 Comment: [...] was last reviewed 2021. Testing performed by: [facility] at [facility], [place] [address] Blood 10/26/2024 9:45 AM PLANT PHYSIOLOGY TEACHER 10/26/2024 9:46 AM PLANT PHYSIOLOGY TEACHER us Samm Velasco MD LAB BLOOD ORDERAB LES Final Result [facility] [address] Department [place] [address] * Differential, auto (10/26/2024 9:45 AM PLANT PHYSIOLOGY TEACHER) Neutrophil abs 2.8 1.5 - 6.5 K/cumm Comment:Testing performed by : [facility] [place] [address] Imm gran abs 0.0 0.0 - 0.1 K/cumm CERNER CH Comment:Testing performed by : [facility] [place] [address] Lymphocyte abs 1.7 0.8 - 3.3 K/cumm CERNER CH Comment:Testing performed by : [facility] [place] [address] Monocyte abs 0.4 0.2 - 0.8 K/cumm CERNER CH Comment:Testing performed by : [facility] [place] [address] Eosinophil abs 0.1 0.0 - 0.5 K/cumm CERNER CH Comment:Testing performed by : [facility] [place] [address] Basophil abs 0.0 0.0 - 0.1 K/cumm CERNER CH Comment:Testing performed by : [facility] [place] [address] Neutrophil pct 56.3 % CERNER Comment: Interpretive Data Percent cell count reference ranges are not reported, since discordance with absolute values may lead to misinterpretation of CBC data. Current Interpretive Data was last revised on 2017. Testing performed by: [facility] [place] [address] Imm gran pct 0.2 % CERNER CH Comment: Interpretive Data Percent cell count reference ranges are not reported, since discordance with absolute values may lead to misinterpretation of CBC data. Current Interpretive Data was last revised on 2017. Testing performed by: [facility] [place] [address] Lymphocyte pct 33.7 % BETTINA Comment: Interpretive Data Percent cell count reference ranges are not reported, since discordance with absolute values may lead to misinterpretation of CBC data. Current Interpretive Data was last revised on 2017. Testing performed by: [facility] [place] [address] Monocyte pct 7.0 % BETTINA Comment: Interpretive Data Percent cell count reference ranges are not reported, since discordance with absolute values may lead to misinterpretation of CBC data. Current Interpretive Data was last revised on 2017. Testing performed by: [facility] [place] [address] Eosinophil pct 2.0 % BETTINA Comment: Interpretive Data Percent cell count reference ranges are not reported, since discordance with absolute values may lead to misinterpretation of CBC data. Current Interpretive Data was last revised on 2017. Testing performed by: [facility] [place] [address] Basophil pct 0.8 % BETTINA Comment: Interpretive Data Percent cell count reference ranges are not reported, since discordance with absolute values may lead to misinterpretation of CBC data. Current Interpretive Data was last revised on 2017. Testing performed by: [facility] [place] [address] Blood 10/26/2024 9:45 AM PLANT PHYSIOLOGY TEACHER 10/26/2024 9:46 AM PLANT PHYSIOLOGY TEACHER us Samm Velasco MD LAB BLOOD ORDERAB LES Final Result [facility] [address] Department [place] [address] * CBC with auto differential (10/26/2024 9:45 AM PLANT PHYSIOLOGY TEACHER) WBC 5.0 3.8 - 9.9 K/cumm Comment:Testing performed by : [facility] [place] [address] Hgb 13.7 11.9 - 15.5 g/dL CERNER CH Comment:Testing performed by : [facility] [place] [address] Hct 42.3 35.6 - 45.5 % CERNER CH Comment:Testing performed by : [facility] [place] [address] Plt 226 150 - 400 K/cumm CERNER CH Comment:Testing performed by : [facility] [place] [address] MPV 10.4 9.1 - 12.3 fL CERNER CH Comment:Testing performed by : [facility] [place] [address] RBC 4.60 3.90 - 5.20 M/cumm CERNER CH Comment:Testing performed by : [facility] [place] [address] MCV 92.0 81.3 - 96.4 fL CERNER CH Comment:Testing performed by : [facility] [place] [address] MCH 29.8 27.1 - 33.3 pg CERNER CH Comment:Testing performed by : [facility] [place] [address] MCHC 32.4 32.3 - 35.7 g/dL CERNER CH Comment:Testing performed by : [facility] [place] [address] RDW CV 12.7 11.1 - 14.9 % CERNER CH Comment:Testing performed by : [facility] [place] [address] RDW SD 42.8 35.7 - 48.1 fL CERNER CH Comment:Testing performed by : [facility] [place] [address] NRBC abs 0.00 0.00 - 0.01 K/cumm CERNER CH Comment:Testing performed by : [facility] [place] [address] Blood 10/26/2024 9:45 AM PLANT PHYSIOLOGY TEACHER 10/26/2024 9:46 AM PLANT PHYSIOLOGY TEACHER us Samm Velasco MD LAB BLOOD ORDERAB LES Final Result [facility] [address] Department of Laboratories [place] [phone] * TSH (10/26/2024 9:45 AM PLANT PHYSIOLOGY TEACHER) [facility] Thyroid Stimulating Hormone 2.41 0.30 - 4.20 mcIUnit/mL Blood 10/26/2024 9:45 AM PLANT PHYSIOLOGY TEACHER 10/26/2024 11:53 AM PLANT PHYSIOLOGY TEACHER Samm Velasco MD LAB BLOOD ORDERAB LES Final Result Performing Organization Address City/[facility] Co de Phone Number [facility] [address] [place] [address] * PTH (10/26/2024 9:45 AM PLANT PHYSIOLOGY TEACHER) [facility] PTH 29 15 - 65 pg/mL Blood 10/26/2024 9:45 AM PLANT PHYSIOLOGY TEACHER 10/26/2024 11:53 AM PLANT PHYSIOLOGY TEACHER Samm Velasco MD LAB BLOOD ORDERAB LES Final Result Performing Organization Address [facility] de Phone Number [facility] [address] [facility] [place] [address] * (ABNORMAL) Comprehensive metabolic panel (10/26/2024 9:45 AM PLANT PHYSIOLOGY TEACHER) [facility] Sodium 137 135 - 145 mmol/L Comment:Testing performed by : [facility] [place] [address] Potassium, pl 4.4 3.3 - 4.9 mmol/L CERNER CH Comment:Testing performed by : [facility] [place] [address] Chloride 101 97 - 110 mmol/L CERNER CH Comment:Testing performed by : [facility] [place] [address] CO2 29 22 - 32 mmol/L CERNER CH Comment:Testing performed by : [facility] [place] [address] Anion gap 7 2 - 15 mmol/L CERNER CH Comment:Testing performed by : [facility] [place] [address] BUN 13 6 - 25 mg/dL CERNER CH Comment:Testing performed by : [facility] [place] [address] Creatinine 0.88 0.60 - 1.10 mg/dL CERNER CH Comment:Testing performed by : [facility] [place] [address] Glucose 141 70 - 199 mg/dL CERNER [...] was last revised 2022. Testing performed by: [facility] [place] [address] Calcium 10.8(H) 8.5 - 10.3 mg/dL CERNER CH Comment:Testing performed by : [facility] [place] [address] Bilirubin, total 1.0 0.1 - 1.2 mg/dL CERNER CH Comment:Testing performed by : [facility] [place] [address] Protein, pl 7.4 6.5 - 8.5 g/dL CERNER CH Comment:Testing performed by : [facility] [place] [address] Albumin 4.6 3.5 - 5.0 g/dL CERNER CH Comment:Testing performed by : [facility] [place] [address] Alk phos 90 40 - 130 Units/L CERNER CH Comment:Testing performed by : [facility] [place] [address] ALT 20 7 - 45 Units/L CERNER CH Comment:Testing performed by : [facility] [place] [address] AST 25 10 - 45 Units/L CERNER CH Comment:Testing performed by : [facility] [place] [address] Blood 10/26/2024 9:45 AM PLANT PHYSIOLOGY TEACHER 10/26/2024 9:46 AM PLANT PHYSIOLOGY TEACHER us Samm Velasco MD LAB BLOOD ORDERAB LES Final Result Performing Organization Address City/[facility]/ZIP Co de Phone Number [facility] [address] [facility] Department [place] [address] * SIGNATERA + ALTERA (COMBO) (10/26/2024) REPORT SUMMARY See Notes 11/19/2024 12:56 PM CDT [facility] Comment:Laboratory processin g could not proceed due to poor DNA quality and/or quantity. [employer] customer care can be reached by telephone at [phone], by FAX at [phone], and by email at [email or web address]. For more information regarding tissue collection, please visit this page: [email or web address] FOOTNOTES See Notes 11/19/2024 12:56 PM CDT [facility] Comment:Test Interpreted by [employer]: [address] [place] [address] [address] [place] [address]: CLIA ID #[id number]: [employer] Gamer: Kelvin Paniagua, Ph.D., [facility]. Test Performed by [facility]: [address] [place] [address], [address]: CLIA ID # [id number]: CLIA Gamer: Tianna Hannah Blood specimen (specimen) Venous blood specimen / Unknown 10/26/2024 11/19/2024 12:56 PM CDT us Samm Velasco MD LAB GENETIC TESTI NG Final Result [facility] [address] [place] [address], [facility] * SIGNATERA ONLY (10/26/2024) SIGNATERA TEST RESULT NEGATIVE 04/2025 10:16 PM PLANT PHYSIOLOGY TEACHER [facility] SIGNATERA MTM READOUT 0 MTM/ml 04/2025 10:16 PM PLANT PHYSIOLOGY TEACHER [facility] Comment: Limitations Signatera is a [...] samples collected in cell-free DNA blood tubes (Edufii) using the QIALabtivampStorage Made Easyny automated or manual extraction method (Qiagen). Using a proprietary algorithm, putative, clonal variants present in the tumor but absent in the germline DNA are identified to design the customized multiplex PCR assay. Whole-exome sequencing is performed on tumor and peripheral blood DNA using Blinkp library kit ([employer]) with a custom Truckily exome capture ([employer]). Using a proprietary algorithm, putative clonal variants present in the tumor but absent in the germline DNA are identified to design the customized multiplex PCR assay. Circulating tumor DNA is extracted from plasma collected in Streck tubes using [employer] proprietary methods. The customized PCR assays are [...] and whole exome sequencing are performed at [facility] (CLIA ID# [id number]) [address] [place] [id number]. Disclaimer The extraction, library preparation, and sequencing for this test were performed by [facility] [address] [place] [address], [facility] [address], [place] [address] (CLIA ID [id number]). The data analysis and reporting for this test were performed by [facility] [address] [facility]. [facility] [address], [place] [address] (CLIA ID [id number]). This test was developed and its performance characteristics determined by [facility]. The test has not been cleared or approved by the U.S. Food and Drug Administration (FDA). CAP accredited, ISO 64441 certified, and CLIA certified. Pathology services and whole exome sequencing for this test were performed by [facility] [address] [place] [id number] (CLIA ID [id number]). 2020 [employer]. All Rights Reserved. Blood specimen (specimen) Venous blood specimen / Unknown 10/26/2024 11/18/2024 10:16 PM PLANT PHYSIOLOGY TEACHER Samm Velasco MD LAB GENETIC TESTI NG Final Result [facility] [address] [place] [address], [facility] * SCAN - PATHOLOGY (10/26/2024) Provider Scanning Edited Result - Final * GA AN PROCEDURE PLACEHOLDER (09/22/2024 7:59 AM PLANT PHYSIOLOGY TEACHER) Raciel Roberts Jr., CRNA - 09/22/2024 7:59 AM PLANT PHYSIOLOGY TEACHER Raciel Ornelas Jr., CRNA 09/22/2024 7:59 AM Peripheral IV Catheter Patient location: OR Staff: Placed by: FARM FORESTRY AND GARDEN WORKERS: Raciel Ornelas Jr., CRNA Preprocedure prep: Prep solution: alcohol PPE: gloves PIV line: Laterality: left Site: forearm Catheter size: 18 g Technique: anatomical landmarks Procedure details: good blood return Number of attempts: 1 Assessment: Events: patient tolerated procedure well with no complications Dominick Richmond MD ANESTHESIA ORDERABLES Final Res ult * GA AN ELECTIVE ENDOTRACHEAL AIRWAY, GA AN PROCEDURE PLACEHOLDER (09/22/2024 7:58 AM PLANT PHYSIOLOGY TEACHER) Raciel Roberts Jr., CRNA - 09/22/2024 7:58 AM PLANT PHYSIOLOGY TEACHER Raciel Ornelas Jr., CRNA 09/22/2024 7:59 AM Airway Patient location: OR Urgency: elective Difficult airway: no Staff: Supervising provider: Dominick Richmond MD Placed by: FARM FORE[employer]Y [employer] GARDEN WORKERS: Raciel Ornelas Jr., CRNA Emergent airway documentation: [...] BL CHOICE PRF [place]PO [place] Care Teams Favor Maker Relationship Specialty Start Date End Date No, Physician PCP - General 02/03/23 Loren Martinez MD [address] [place] [address] [facility] 200 [place] [address] Referring Physician Obstetrics and Gynecology 02/01/23 Samm Velasco MD [facility], [facility] [address] [place] [address] Consulting Physician Medical Oncology 03/30/23
--- OUTSIDE RECORDS SUMMARY | 2024-12-21 17:40 | XMS_ITS | Encounter Summary ---
Author Organization [facility] Address [address] [place] [address] Phone Care Team Providers Care Vulcanized Fiber Unit Operator Name Role Phone Loren Martinez MD Unavailable [phone] No, Physician Primary Care Provider Samm Velasco MD Unavailable Encounter Details Date Type Department Care Team (Late st Contact Info) Description 11/29/2024 Results Follow-Up [facility] [address] [facility] Floor 8 [place] [address] Estela Currie NP [address] [place] [address] Social History Tobacco Use Types Packs/Day Years [...] often do you attend chur ch or taoist services? 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 Gender Identity Not on file Sexual Orientation Not on file documented as of this encounter Plan of Treatment Upcoming Encounters Date Type Department Care Team (Late st Contact Info) Description 07/06/2025 Hospital Encounter [facility] Operating [facility] [address] [place] [address] Ivory Cedeno MD [id number] [place] [address] Scheduled Procedures Name Priority Associated Diagnoses Date/Ti me EXCHANGE IMPLANT BREAST H/O left mastectomy MASTOPEXY H/O left mastectomy FAT GRAFTING H/O left mastectomy CAPSULECTOMY BREAST H/O left mastectomy documented as of this encounter Visit Diagnoses Not on filedocumented in this encounter Care Teams Vulcanized Fiber Unit Operator Relationship Specialty Start Date End Date No, Physician PCP - General 02/03/23 Loren Martinez MD [address] [place] [address] [facility] 200 [place] [address] Referring Physician Obstetrics and Gynecology 02/01/23 Samm Velasco MD [address] [facility], [facility] [address] [place] [address] Consulting Physician Medical Oncology 03/30/23 documented as of this encounter
--- OUTSIDE RECORDS SUMMARY | 2024-12-21 17:40 | XMS_ITS ---
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 Hx antineoplastic chemotherapy 07/12/2023 Malignant [...] Velasco MD 14 of 14 cycles started [id number] - [facility] - Breast - Neoadjuvant Pertuzumab / Trastuzumab / Docetaxel 3 08/17/2023 DOCEtaxel (TAXOTERE) IVPB in 250 mL (vial 20mg/mL)pertuz umab (PERJETA)pertu zumab (PERJETA) IVPBtrastuzuma b-anns (KANJINTI)tras tuzumab-anns (KANJINTI) IVPB Therapy Complete Samm Vealsco MD 5 of 6 cycles started Lifetime Dose Tracking * Chemical Lifetime Dose Automatic Entry Manual Entr y Fluoro Time 0.292 minutes 0.292 minutes 0 minutes Air kerma at the reference point (Ka,r) 2.52 mGy 2 .52 mGy 0 mGy
--- NOTE | 2024-12-21 18:03 | ED_ITS ---
HPI - Headache General Chief Complaint: Headache Stated Complaint: Headache for several days, Dizziness today Time Seen by Provider: 12/21/24 17:18 Source: patient and family Mode of arrival: ambulatory Limitations: no limitations History of Present Illness HPI Narrative: Patient presents with report of headache of several days duration. She then had an episode of dizziness today at lunch at around 12 noon. She denies feeling sense lightheadedness or any rotational movement/spinning. She felt off balance. At that time she had blurred vision states that as she was at lunch seated it seemed like the table in front of her was falling. She denies any ear pain or hearing loss but had bilateral tinnitus. No unilateral symptoms. She had a weird feeling in her arms neck and back but has attributed this to yoga which she started doing recently again. No slurred speech. No photophobia or phonophobia. She states that she has similar issues in the past year that was attributed to congestion. Headache is frontal. She is on an anti hormone medication in the setting breast cancer status post mastectomy. No nausea or vomiting. The dizzy episode lunch was preceded by her turning head to the side and down to look at the film table. Now it does occur if she gets up too quickly. No fevers or chills. No sick contacts. No trauma anticoagulation. Does not currently have a primary care physician Related Data Allergies Allergy/AdvReac Type Severity Reaction Status Date / Time No Known Allergies Allergy Verified 12/21/24 15:54 [facility] Past Medical History Medical History Breast cancer Hx of infectious mononucleosis Exocrine pancreatic insufficiency Hydrosalpinx CVA (cerebral vascular accident) Surgical History Surgical History H/O mastectomy Hx of tonsillectomy Hx of hysterectomy Hx of tubal ligation Family History Family History Other Family history of malignant neoplasm of male breast Social History Social History Smoking status: Never smoker Second hand tobacco smoke exposure: No Alcohol intake: current Occupation/Education: occupation Gender identity (if verbalized by the patient): Female Exam 2 Narrative: GENERAL: Well-appearing, well-nourished, and in no acute distress. HEAD: Normocephalic, atraumatic. No facial droop. EYES: Non injected, non icteric. Extraocular movements intact. PERRL ENT: Nares clear, no rhinorrhea or epistaxis. Bilateral tympanic membranes easily visualized, normal NECK: Supple. No meningismus CHEST: Speaking in full sentences. No respiratory distress. HEART: Regular rate and rhythm. . ABDOMEN: Soft, nondistended. EXTREMITIES: He moves extremities x4. No lower extremity edema. SKIN: Warm, dry, no rash. NEURO: No focal deficits. Alert and oriented x3. Speaks clearly without aphasia or dysarthria. No abnormal movements appreciated. Stands, bearing own weight and without symptoms. PSYCH: Normal mood and affect. Course Vital Signs Vital signs: Vital Signs Temperature 97.9 F 12/21/24 16:18 Pulse Rate 73 12/21/24 16:18 Respiratory Rate 16 12/21/24 16:18 Blood Pressure 159/85 H 12/21/24 16:18 Pulse Oximetry 98 12/21/24 16:18 Oxygen Delivery Room Air 12/21/24 16:18 Temperature 97.6 F 12/21/24 21:27 Pulse Rate 84 12/21/24 21:27 Respiratory Rate 18 12/21/24 21:27 Blood Pressure 138/72 12/21/24 21:27 Pulse Oximetry 100 12/21/24 21:27 Oxygen Delivery Room Air 12/21/24 16:18 MDM - Headache MDM Narrative Medical decision making narrative: Patient presents report a frontal headache several days duration a episode of dizziness today at approximately noon in which it felt like the table in front of her was falling in her vision became blurred as she moved her head looked down at the table. Also having bilateral tinnitus. Now she only gets dizzy again if she gets up quickly. In the emergency department she is afebrile with vital signs that show mild hypertension. After obtaining the patient's history and performing a physical exam, the headache is most likely due to benign etiology. The extensive neurological examination is non-focal, vital signs are stable, and the patient is non-toxic appearing. The Ddx for the patient's headache is tension headache, migraine, or other headache of non-emergent etiology. Unlikely SAH: Headache is gradual, non-maximal at onset and similar to headaches in the past. Unlikely subdural/epidural hematoma: no history of trauma, no anticoagulation Unlikely meningitis: afebrile, no meningismus, no photophobia Unlikely temporal arteritis: pt is >60 years old but headache is frontal Unlikely acute angle glaucoma: PERRL Unlikely carbon monoxide poisoning: no other house members with similar symptoms However, patient does have risk factors in the history of breast cancer and, per review of the EMR although not initially noted by the patient, history of CVA. Thus, imaging obtained. Does not sound distinctly like vertigo, though also considered the following DIFFERENTIAL DIAGNOSES: Central causes: infection ( encephalitis, meningitis, cerebritis); vertebrobasilar arterial insufficiency, subclavian steal syndrome, cerebellar or brainstem hemorrhage or infarction, vertebrobasilar migraine, trauma ( temporal bone fracture, post concussive syndrome); tumor (brainstem or cerebellum); MS; temporal lobe epilepsy Peripheral causes: Foreign body, cerumen impaction, acute otitis media, labyrinthitis, benign paroxysmal positional vertigo, Meniere's disease, vestibular neuronitis, perilymphatic fistula, trauma, motion sickness, acoustic neuroma, ototoxic medications Her initial episode had been preceded by turning her head thus initially trialed meclizine, though not all of the other symptoms are attributed to BPPV. The patient's headache was treated symptomatically. Ortho stats are reviewed and now stable. Patient reassessed at approximately 9:05 p.m.. Her headache and dizziness are both resolved. She has been ambulating with steady gait. Discussed the importance of follow-up. She does not currently have a primary care physician. Name of 1 is provided but she is also advised she can go through her insurance alternatively. She is given 1 time dose of dexamethasone as is been shown to reduce the occurrence of bounce-back/rebound headache. Lab Data Attestation: I reviewed the patient's lab results. 12/21/24 18:21 12/21/24 18:21 Labs: Lab Results 12/21/24 Range/Units 18:21 WBC 5.2 (4.5-10.0) K/mm3 RBC 4.41 (4.2-5.4) M/mm3 Hgb 13.4 (12.0-15.0) g/dL Hct 41.3 (37.0-47.0) % MCV 93.7 (80-100) fl MCH 30.4 (26-34) pg MCHC 32.4 (32-36) g/dl RDW 12.3 (11.5-14.5) % Plt Count 237 (150-375) k/mm3 MPV 10.7 H (7.4-10.4) fl Immature Gran % (Auto) 0.2 (0-0.5) % Neut % (Auto) 58.5 (45.5-73.1) % Lymph % (Auto) 32.1 (18.3-44.2) % Powell % (Auto) 6.9 (2.6-8.5) % Eos % (Auto) 1.7 (0-4.4) % Baso % (Auto) 0.6 (0.2-1.2) % Lymph # (Auto) 1.67 (0.9-3.2) K/mm3 Powell # (Auto) 0.4 (0.1-0.6) K/mm3 Eos # (Auto) 0.1 (0-0.3) K/mm3 Baso # (Auto) 0.0 (0.0-0.1) K/mm3 Abs Immat Gran (auto) 0.01 (0.00-0.031) K/mm3 Absolute Neuts (auto) 3.0 (1.3-6.7) K/mm3 Absolute Nucleated RBC 0.000 (0.0-0.012) K/mm3 Nucleated RBC % 0.0 (0.0-0.2) % Sodium 140 (137-145) mmol/L Potassium 4.3 (3.4-5.0) mmol/L Chloride 102 (98-107) mmol/L Carbon Dioxide 29 (22-30) mmol/L Anion Gap 9 (4-12) mmol/L BUN 19 H (7-17) mg/dL Creatinine 0.90 (0.7-1.0) mg/dL Estim Creat Clear Calc 60 ml/min Estimated GFR > 60 (59 - ) Glucose 97 (65-110) mg/dL Calcium 10.3 H (8.4-10.2) mg/dL Imaging Data Radiologist's impression: IMPRESSION: 1. Normal CTA head and neck. Percent stenosis per NASCET criteria is 0%. ECG Data EKG #1: Attestation: I personally reviewed and interpreted this ECG as follows: ECG completion date: 12/21/24 ECG completion time: 18:54 Interpretation: Normal sinus rhythm at a rate of 60 beats per minute. OH interval 137. QRS 84. QT/QTC 386/386. Good R-wave progression across the precordial leads. No T- wave inversions. Normal ECG. Discharge Plan Discharge Clinical Impression: Bilateral tinnitus, Frontal headache, Dizziness Patient Disposition: Home Condition: Stable Instructions: Antibiotic Form, Dizziness (ED), Tinnitus (ED), General Headache (ED) Additional Instructions: As we discussed, the exact cause of your symptoms is unclear although your labs and imaging which included a CT scan of your brain w/o contrast and a CTA of your head and neck were normal. You responded well to the medication below and will be prescribed the same. Acetaminophen/Tylenol (maximum 4000 mg per day) is safe to take with NSAIDs (ibuprofen/Motrin) for pain relief. Is important to follow up and have a primary care physician. The name of 1 is listed below. Return to the emergency department with any new or worsening symptoms Patient Language: Persian Prescriptions: New acetaminophen 500 mg capsule 1,000 mg PO Q6H PRN (Reason: pain) Qty: 30 0RF ibuprofen 600 mg tablet 600 mg PO TID PRN (Reason: pain) Qty: 30 0RF meclizine 25 mg tablet,chewable 25 mg PO DAILY PRN (Reason: dizziness) Qty: 30 0RF Follow-up/Referrals: PHYSICIAN,POPCORN ATTENDANT [Primary Care Provider] - Yunior Meyers MD [Physician] - Stand Alone Forms: Work/School Release IP Time of Disposition: 21:13
--- NOTE | 2024-12-21 18:04 | ECG_ITS ---
Test Date: 2024-12-21 18:54:40 Measurements Intervals Vass Rate: 60 P: -6 [place]: 137 QRS: 39 QRSD: 84 T: 39 QT: 386 QTc: 386 Interpretive Statements SINUS RHYTHM CANNOT R/O SEPTAL INFARCT, AGE INDETERMINATE BASELINE ARTIFACT- I, II, III, AVR ABNORMAL ECG No previous ECG available for comparison Electronically Signed On 12-21-2024 20:30:56 CDT by Alex Franklin D.O.
[2024-12-21 18:32] LABS: Basophils Percent Auto 0.6 % (0.2-1.2); Eosinophils Absolute Auto 0.1 K/mm3 (0-0.3); Eosinophils Percent Auto 1.7 % (0-4.4); Hematocrit 41.3 % (37.0-47.0); Hemoglobin 13.4 g/dL (12.0-15.0); Immature Granulocyte Absolute 0.01 K/mm3 (0.00-0.031); Immature Granulocyte Percent A 0.2 % (0-0.5); Lymphocytes Absolute Auto 1.67 K/mm3 (0.9-3.2); Lymphocytes Percent Auto 32.1 % (18.3-44.2); Mean Corpuscular HGB Conc 32.4 g/dl (32-36); Mean Corpuscular Hemoglobin 30.4 pg (26-34); Mean Corpuscular Volume 93.7 fl (80-100); Mean Platelet Volume 10.7 fl (7.4-10.4); Monocytes Absolute Auto 0.4 K/mm3 (0.1-0.6); Monocytes Percent Auto 6.9 % (2.6-8.5); Neutrophils Percent Auto 58.5 % (45.5-73.1); Platelet Count Result 237 k/mm3 (150-375); Red Blood Count 4.41 M/mm3 (4.2-5.4); Red Cell Distribution Width 12.3 % (11.5-14.5); White Blood Count 5.2 K/mm3 (4.5-10.0)
[2024-12-21 18:37] LABS: Anion Gap 9 mmol/L (4-12); Blood Urea Nitrogen 19 mg/dL (7-17); Calcium 10.3 mg/dL (8.4-10.2); Carbon Dioxide 29 mmol/L (22-30); Chloride 102 mmol/L (98-107); Estimated CRCL calculation 60 ml/min; Estimated Glomerular Filt Rate > 60; Glucose 97 mg/dL (65-110); Potassium 4.3 mmol/L (3.4-5.0); Sodium 140 mmol/L (137-145)
[2024-12-21 18:46] VITALS: BP 130/72; PULSE 63
[2024-12-21 18:48] VITALS: BP 138/71; PULSE 70
[2024-12-21 18:50] VITALS: BP 137/79; PULSE 72
[2024-12-21] MEDS: MECLIZINE HCL 25 MG TABLET PO (19:17)
[2024-12-21] MEDS: PROCHLORPERAZINE EDISYLATE 10 MG/2 ML VIAL 5 MG IV PUSH (20:34)
[2024-12-21] MEDS: diphenhydrAMINE HCl INJ 50 MG/ML VIAL 25 MG IV PUSH (20:34)
[2024-12-21] MEDS: KETOROLAC 15 MG/ML VIAL (*BKC) IV PUSH (20:34)
[2024-12-21] MEDS: dexAMETHasone 2 MG TABLET 10 MG PO (21:24)
[2024-12-21 21:27] VITALS: BP 138/72; PULSE 84; RESP 18; TEMP 36.4; O2SAT 100
== END 2024-12-21 21:30 | disposition home or self-care (01) ==
PROVIDERS: Emergency Provider Student in an Organized Health Care Education/Training Program
DX: R51.9 Headache, unspecified (principal); R42 Dizziness and giddiness; H93.13 Tinnitus, bilateral; K86.81 Exocrine pancreatic insufficiency; Z85.3 Personal history of malignant neoplasm of breast; Z86.73 Personal history of transient ischemic attack (TIA), and cerebral infarction without residual deficits; Z90.10 Acquired absence of unspecified breast and nipple; Z90.710 Acquired absence of both cervix and uterus; Z79.899 Other long term (current) drug therapy
CPT/HCPCS: 36415; 70496; 70498; 80048; 85025; 93005; 96374; 96375; 99284; A9270; J0780; J1200; J1885; J8540; Q9967